=== PATIENT | male | born 1955 | race Caucasian/White ===

== ENCOUNTER 2018-03-31 13:09 | Inpatient (IN) | payer BC ==
[2018-03-31] VITALS (18 sets, daily range): BP systolic 98–135; BP diastolic 58–83; BMI 25.8
[~2018-03-31] VITALS: Ht 167.6 cm; Wt 72.0 kg
--- NOTE | ~2018-03-31 | HEMODYNAMI ---
PATIENT:GISELL BAEZA MEDICAL RECORD: [id number] : 59 [address] [id number] ADMISSION DATE: 03/31/18 Generatedon:04/02/201812:35 Patient name: GISELL BAEZA Patient #: [id number] SSN: : Date of study: 04/02/2018 Page: Of Hemodynamic Procedure Report Patient Data Patient Demographics Procedure consent was obtained First Name: GISELL Gender: Male Last Name: FELISHA : 1955 Patient #: [id number] Age: 62 year(s) Race: Unknown Additional ID: [id number] Contact details Address: UNKNOWN State: [place] City: [facility] Zip code: [address] Past Medical History Allergies: No known allergies Admission Admission Data Admission Date: 03/31/2018 Admission Time: 14:22 Admit Source: Emergency department Room #: D.CV02 Lab Results Lab Result Date: 04/02/2018 Lab Result Time: 0:00 Biochemistry Name Units Result Min Max BUN mg/dl 11 --(-*--)-- 7 18 Creatinine mg/dl 0.8 --(-*--)-- 0.6 1.3 CBC Name Units Result Min Max Hematocrit % 42.2 --(*---)-- 42 54 Hemoglobin g/dl 14.3 --(*---)-- 13.5 17.5 Procedure Procedure Types Cath Procedure Diagnostic Procedure [facility] PCI Procedure Coronary Stent Coronary Stent Initial x2 Procedure Description Procedure Date Procedure Date: 04/02/2018 Procedure Start Time: 12:18 Procedure End Time: 12:34 Procedure Staff Name Function Rakesh Lawton MD Performing Physician Ezekiel Escalera RT Monitor Ledy Pearson RT Scrub Ortega Boogie RN Nurse Procedure Data Cath Procedure Fluoroscopy Diagnostic fluoroscopy Total fluoroscopy Time: 2.6 time: 2.6 min min Diagnostic fluoroscopy Total fluoroscopy dose: dose: 157.54 mGy 157.54 mGy Contrast Material Contrast Material Type Amount (ml) Isovue 300 64 Entry Location Entry Primary Successful Side Size Upsize Upsize Entry Closure Willis ccessful Closure Location (Fr) 1 (Fr) 2 (Fr) Remarks Device Remarks Radial Right 6 Fr Mechanical artery Short Compression Estimated blood loss: 10 ml Procedure Complications No complications Procedure Medications Medication Administration Route Dosage 0.9% NaCl I.V. 100 ml/hr Oxygen etCO2 Nasal cannula 4 l/min Heparin Flush Bag added to field 2 bags (1000units/500ml NS) Lidocaine 2% added to field 20 Radial Cocktail added to field 1 syringe (Verapomil 2mg/Nitro 400mcg/Heparin 1500units) Versed I.V. 1 mg Fentanyl I.V. 50 mcg Radial Cocktail I.A. 1 syringe (Verapomil 2mg/Nitro 400mcg/Heparin 1500units) Oxygen etCO2 Nasal cannula 6 l/min Heparin Bolus I.V. 4000 units Hemodynamics Rest HGB: 14.3 (g/dl) Heart Rate: 75 (bpm) Snapshots Pre Cath Intra NCS Post Cath Vital Signs Time Heart Resp SPO2 etCO2 NIBP (mmHg) Rhythm Pain Sedation Rate (ipm) (%) (mmHg) Status Level (bpm) 12:00:38 71 22 92 0 114/82(103) NSR 0 (11) 10(A) , No pain 12:04:46 73 19 92 36.4 111/81(92) NSR 0 (11) 10(A) , No pain 12:08:56 74 19 90 37.9 99/70(84) NSR 0 (11) 10(A) , No pain 12:13:02 74 20 90 34.1 107/68(85) NSR 0 (11) 10(A) , No pain 12:17:11 73 17 92 25.8 100/70(86) NSR 0 (11) 9(A) , No pain 12:21:21 72 19 94 28.8 101/61(79) NSR 0 (11) 9(A) , No pain 12:25:27 77 18 90 32.6 101/70(86) NSR 0 (11) 9(A) , No pain 12:29:31 74 24 92 32.6 109/75(89) NSR 0 (11) 9(A) , No pain 12:33:37 71 26 94 31.8 107/75(90) NSR 0 (11) 9(A) , No pain Medications Time Medication Route Dose Verified Delivered Reason Not es Effectiveness by by 12:03:20 0.9% NaCl I.V. 100 Ortega Ortega Per physician ml/hr Keagan Boogie RN RN 12:03:37 Oxygen etCO2 4 l/min Ortega Ortega for low 02 sats Nasal Lorigan Lorigan cannula RN RN 12:03:47 Heparin Flush added 2 bags Ortega Ortega used for Bag to Lorigan Keagan procedure (1000units/500ml field RN RN NS) 12:03:58 Lidocaine 2% added 20ml Ortega Ortega for local to vial Lorigan Lorigan anesthetic field RN RN 12:04:10 Radial Cocktail added 1 Ortega Ortega used for (Verapomil to syringe Lorigan Lorigan procedure 2mg/Nitro field RN RN 400mcg/Heparin 1500units) 12:16:13 Versed I.V. 1 mg Ortega Ortega for sedation Keagan Boogie RN RN 12:16:21 Fentanyl I.V. 50 mcg Ortega Ortega for sedation Keagan Boogie RN RN 12:18:21 Radial Cocktail I.A. 1 Ortega Rakesh for (Verapomil syringe Lorigan Tauth MD vasodilation 2mg/Nitro RN 400mcg/Heparin 1500units) 12:19:24 Oxygen etCO2 6 l/min Ortega Ortega for low 02 sats Nasal Lorigan Lorigan cannula RN RN 12:20:58 Heparin Bolus I.V. 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 Start room use. 11:43:01 Time tracking: Regular hours (M-F 7:00 - 5:00) 11:43:04 Plan of Care:Hemodynamics will remain stable., Cardiac rhythm will remain stable., Comfort level will be maintained., Respiratory function will remain adequate., Patient/ family verbilizes understanding of procedure., Procedure tolerated without complication., Recovers from procedure without complications.. 11:45:01 Lab Result : BUN 11 mg/dl 11:45:01 Lab Result : Creatinine 0.8 mg/dl 11:45:01 Lab Result : Hemoglobin 14.3 g/dl 11:45:01 Lab Result : Hematocrit 42.2 % 11:45:03 Lab results completed and on chart. 11:45:10 H&P Date Dictated: 03/31/2018 Within 30 days and on chart.. 11:45:19 Patient allergic to No known allergies 11:50:58 Patient received from CVICU to CCL 3 Alert and oriented. Tansferred to table in Supine position. 11:50:59 Warm blankets applied, and derrick hugger turned on for patient comfort. 11:50:59 Correct patient and procedure confirmed by team. 11:51:00 ECG and BP/O2 sat monitors applied to patient. 11:51:01 Pre-procedure instructions explained to patient. 11:51:02 Pre-op teaching completed and patient verbalized understanding. 11:51:04 Family in waiting room. 11:51:05 Patient NPO since Midnight. 11:51:06 Is the patient allergic to Iodine/contrast media? No. 11:51:07 Is patient on blood thinner?Yes 11:51:10 ACC The patient was administered the following blood thiners within the last 24 hours: ACCPlavix 11:51:12 Patient diabetic? No. 11:59:39 Vital chart was started 12:03:20 0.9% NaCl 100 ml/hr I.V. was administered by Ortega Boogie RN; Per physician; 12:03:37 Oxygen 4 l/min etCO2 Nasal cannula was administered by Ortega Boogie RN; for low 02 sats; 12:03:47 Heparin Flush Bag (1000units/500ml NS) 2 bags added to field was administered by Ortega Boogie RN; used for procedure; 12:03:58 Lidocaine 2% 20ml vial added to field was administered by Ortega Boogie RN; for local anesthetic; 12:04:10 Radial Cocktail (Verapomil 2mg/Nitro 400mcg/Heparin 1500units) 1 syringe added to field was administered by Ortega Boogie RN; used for procedure; 12:08:55 Baseline sample Acquired. 12:10:20 Full Disclosure recording started 12:12:04 Previous problem with sedation/anesthesia? No ? 12:12:05 Snore? Yes 12:12:06 Sleep apnea? Yes 12:12:07 Deviated septum? No 12:12:08 Opens mouth fully? Yes 12:12:09 Sticks out tongue? Yes 12:12:32 Airway obstruction? No ? 12:12:35 Dentures? No ? 12:12:37 Pre procedure: right dorsailis pedis pulse 2+ Normal; easily identifiable; not easily obliterated 12:12:39 Pre procedure: left dorsailis pedis pulse 2+ Normal; easily identifiable; not easily obliterated 12:12:42 Modified Deniz's test Ulnar < 7 seconds 12:12:43 Patient pain scale 0/10 ?. 12:12:49 IV patent on arrival in left hand, left antecubital with 0.9% NaCl at [facility]. 12:12:53 Right Radial & Right Groin area was prepped with chlora-prep and draped in sterile fashion 12:12:54 Alarms reviewed by R. N. 12:12:54 Sharps counted by scrub and verified by R.N. 12:12:57 Use device set Radial Dx or PCI 12:12:58 Medline Cath Pack ([id number]) opened to sterile field. 12:12:58 ACIST Syringe (42877) opened to sterile field. 12:12:59 Bag Decanter (2002S) opened to sterile field. 12:12:59 ACIST Hand Control (85113) opened to sterile field. 12:13:00 ACIST Manifold (13590) opened to sterile field. 12:13:00 Tegaderm 4 x 4 (1626W) opened to sterile field. 12:13:01 MBrace Wrist Support ([id number]) opened to sterile field. 12:13:01 DIAGNOSTIC WIRE .035 260cm J wire (859980) opened to sterile field. 12:13:02 SHEATH 6FR Slender (65-6677) opened to sterile field. 12:13:14 Baseline sample Acquired. 12:13:17 Rhythm: sinus rhythm 12:13:40 Physician paged 12:14:55 Physician arrived 12:14:58 --------ALL STOP TIME OUT------ 12:14:58 Final Timeout: patient, procedure, and site verified with staff and physician. All members of the team are in agreement. 12:15:03 Right Radial & Right Groin site verified by team. 12:15:08 Fire Safety Assessment: A--An alcohol-based skin anteseptic being used preoperatively., C--Open oxygen or nitrous oxide is being used., D--An ESU, laser, or fiber-optic light is being used. 12:15:10 Physical assessment completed. ASA score P 2 - A patient with mild systemic disease as per Rakesh Lawton MD. 12:15:12 Sedation plan: IV Moderate Sedation Medication:Versed, Fentanyl 12:16:08 INFLATOR Merit BasixCompak (AI2333) opened to sterile field. 12:16:08 GUIDE 6FR XBLAD 3.5 catheter ([id number]) opened to sterile field. 12:16:13 Versed 1 mg I.V. was administered by Ortega Boogie RN; for sedation; 12:16:21 Fentanyl 50 mcg I.V. was administered by Ortega Boogie RN; for sedation; 12:18:09 Zero performed for pressure channel P1 12:18:15 Zero performed for pressure channel P1 12:18:21 Radial Cocktail (Verapomil 2mg/Nitro 400mcg/Heparin 1500units) 1 syringe I.A. was administered by Rakesh Lawton MD; for vasodilation; 12:18:35 Procedure started. 12:18:38 Local anesthetic to right radial artery with Lidocaine 2% by Rakesh Lawton MD.INITIAL ACCESS ONLY 12:18:47 A 6 Fr Short sheath was inserted into the Right Radial artery 12:19:00 6 Fr xblad 3.5 guide catheter was inserted over the wire 12:19:24 Oxygen 6 l/min etCO2 Nasal cannula was administered by Ortega Boogie RN; for low 02 sats; 12:20:16 CHOICE PT Extra Support J 300cm guide wire ([id number]) opened to sterile field. 12:20:23 choice pt es wire advanced. 12:20:58 Heparin Bolus 4000 units I.V. was administered by Ortega Boogie RN; for anticoagulation; 12:21:05 Wire advanced across lesion. 12:22:45 Place stent Inflation Number: 1 A INTEGRITY OTW 2.5 X 22 stent ([id number]) was prepped and advanced across the Prox LAD. The stent was deployed at 13 ANNALEE for 0:10 (min:sec). 12:22:51 Inflation number: 2 The stent balloon was then re-inflated across the Prox LAD to 17 ANNALEE for 0:10 (min:sec). 12:23:13 Stent catheter was removed intact over wire. 12:23:16 Wire removed. 12:23:17 Guide catheter removed. 12:23:25 GUIDE 6FR AR 2.0 catheter ([id number]) opened to sterile field. 12:24:27 6 Fr ar 2 guide catheter was inserted over the wire 12:24:33 choice pt es wire advanced. 12:26:56 Place stent Inflation Number: 1 A INTEGRITY OTW 3.5 X 26 stent ([id number]) was prepped and advanced across the Prox RCA. The stent was deployed at 13 ANNALEE for 0:10 (min:sec). 12:27:11 Stent catheter was removed intact over wire. 12:27:12 Wire removed. 12:27:13 Guide catheter removed. 12:27:55 TR BAND Standard ([id number]) opened to sterile field. 12::33 Sheath removed intact; hemostasis achieved with Mechanical Compression to the Right Radial artery. 12:29:35 Procedure ended.(Physican Out) 12:31:07 Fluoroscopy time 02.60 minutes. 12:31:14 Flurop Dose total: 157.54 12:31:14 Fluoroscopy dose: 157.54 mGy 12::29 Contrast amount:Isovue 300 64ml. 12:31:31 Sharps counted by scrub and verified by R.N. 12:32:21 TR band inflated with 12cc of air. 12:32:23 Insertion/operative site no bleeding no hematoma. 12:32:28 Post right radial artery:stable, soft, clean and dry 12:32:29 Post Procedure Pulses reassessed and unchanged 12:32:31 Post-procedure physical assessment completed. ASA score P 2 - A patient with mild systemic disease as per Rakesh Lawton MD. 12:32:35 Post procedure rhythm: unchanged. 12:32:37 Estimated blood loss: 10 ml 12:32:39 Post procedure instruction explained to patient.Patient verbalizes understanding. 12:32:40 Patient needs reinforcement of post procedure teaching. 12:33:01 Procedure type changed to Cath procedure, Diagnostic procedure, LHC, PCI procedure, Coronary Stent, Coronary Stent Initial x2 12:33:57 Procedure and supply charges have been captured, reviewed, submitted and are correct. 12:33:59 Procedure Complication : No complications 12:34:01 Vital chart was stopped 12:34:01 See physician's report for complete and final results. 12:34:04 Report given to CVICU. 12:34:07 Patient transfered to CVICU with Stretcher. 12:34:09 Procedure ended. 12:34:09 Full Disclosure recording stopped 12:34:12 End room use (Document Last) Intervention Summary Intervention Notes Time ActionType Lesion and Equipment Action# Pressure Duration Attributes Used 12:22:45 Place stent Prox LAD INTEGRITY 1 13 00:10 OTW 2.5 X 22 stent ([id number]) 12:22:51 Reinflate Prox LAD INTEGRITY 2 17 00:10 stent OTW 2.5 X balloon 22 stent ([id number]) 12:26:56 Place stent Prox RCA INTEGRITY 1 13 00:10 OTW 3.5 X 26 stent ([id number]) Device Usage Item Name Manufacture Quantity Catalog Number Hospital Part Current Minim al Lot# / Charge Number Stock Stock Serial# Code Medline Medline 1 [id number] 057819 70935 604740 5 Cath Pack ([id number]) ACIST Acist 1 76002 836542 072743 353456 20 Syringe Medical (31540) Systems Inc Bag Microtek 1 2001S 525915 54640 592483 5 Decanter Medical Inc. () ACIST Hand Acist 1 93871 759183 931782 534765 5 Control Medical (67740) Systems Inc ACIST Acist 1 49337 380980 485108 584091 5 Manifold Medical (29095) Systems Inc Tegaderm 4 3M 1 1626W 112122 992709 671017 5 x 4 (1626W) MBrace Advanced 1 140-0250-00 144464 34643 161534 5 Wrist Vascular Support Dynamics ([id number]) DIAGNOSTIC [facility] [place] 1 423298 895202 675685 431124 30 WIRE .035 260cm J wire (233233) SHEATH 6FR Terumo 1 [id number] 837087 206472 941959 5 Slender (80-1060) INFLATOR [facility] 1 [id number] 063673 533925 370794 [address] [facility] BasixCompak (EM9940) GUIDE 6FR Cardinal 1 [id number] 005388 111788 986087 10 XBLAD 3.5 Health catheter (64197511) CHOICE PT [place] 1 [id number] 499118 20180807 568479 5 Extra Scientific Support J 300cm guide wire ([id number]) INTEGRITY Medtronic 1 [id number] 462587 901832 850461 4 [id number] OTW 2.5 X 22 stent ([id number]) GUIDE 6FR Medtronic 1 [id number] 191033 98103 578498 1 AR 2.0 catheter (WR1FZ73) INTEGRITY Medtronic 1 [id number] 025654 353166 848377 1 [id number] OTW 3.5 X 26 stent ([id number]) TR BAND Terumo 1 [id number] 217258 191524 585349 40 Standard ([id number]) Signature Audit [place] Stage Time Signature Unsigned Intra-Procedure 04/02/2018 Ezekiel Escalera 12:35:08 PM RT(R) Signatures Monitor : Ezekiel Escalera RT Signature : Date : Time : [place] [address] [place] [address]
--- NOTE | ~2018-03-31 | HEMODYNAMI ---
PATIENT:GISELL BAEZA MEDICAL RECORD: [id number] : 59 [id number] ADMISSION DATE: 03/31/18 Generatedon:03/31/201814:17 Patient name: GISELL BAEZA Patient #: [id number] SSN: : Date of study: 03/31/2018 Page: Of Hemodynamic Procedure Report Patient Data Patient Demographics Procedure consent was obtained First Name: GISELL Gender: Male Last Name: FELISHA : 1955 Patient #: [id number] Age: 62 year(s) Race: Unknown Additional ID: [id number] Contact details Address: UNKNOWN State: [place] City: [facility] Zip code: [address] Past Medical History Allergies: No known allergies Admission Admission Data Admission Date: 03/31/2018 Admission Time: 13:09 Procedure Procedure Types Cath Procedure Diagnostic Procedure LHC LHC w/Coronaries Sedation Charges Moderate Sedation up to 15 minutes PCI Procedure AMI/SVG/COMMERCIAL ESCROW ASSISTANT PTCA or Stent AMI-BMS/KALA Initial Procedure Description Procedure Date Procedure Date: 03/31/2018 Procedure Start Time: 13:45 Procedure End Time: 14:17 Procedure Staff Name Function Rakesh Lawton MD Performing Physician Ezekiel Escalera RT Monitor Ortega Boogie RN Nurse Ledy Pearson RT Scrub Procedure Data Cath Procedure Fluoroscopy Diagnostic fluoroscopy Total fluoroscopy Time: 8.8 time: 8.8 min min Diagnostic fluoroscopy Total fluoroscopy dose: dose: 1126 mGy 1126 mGy Contrast Material Contrast Material Type Amount (ml) Isovue 300 147 Entry Location Entry Primary Successful Side Size Upsize Upsize Entry Closure Succes sful Closure Location (Fr) 1 (Fr) 2 (Fr) Remarks Device Remarks Femoral Right 6 Fr Exoseal artery Short Estimated blood loss: 10 ml Diagnostic catheters Device Type Used For End Catheter Placement MULTIPACK Pigtail 5 Fr LV Angiography catheter MULTIPACK JL 4.0 5Fr Left Coronary catheter Angiography MULTIPACK 3DRC 5Fr Right Coronary catheter Angiography Procedure Complications No complications Procedure Medications Medication Administration Route Dosage 0.9% NaCl I.V. 100 ml/hr Oxygen etCO2 Nasal cannula 2 l/min Heparin Flush Bag added to field 2 bags (1000units/500ml NS) Lidocaine 2% added to field 20 Versed I.V. 1 mg Fentanyl I.V. 50 mcg Heparin Bolus I.V. 4000 units Integrilin (Bolus I.V. 6.8 ml 2mg/ml) Integrilin (Bolus wasted 3.2 ml 2mg/ml) Integrilin Drip I.V. drip 11.7 ml/hr (75mg/100ml) Fentanyl I.V. 50 mcg Integrilin (Bolus I.C. 6.8 ml 2mg/ml) Integrilin (Bolus wasted 3.2 ml 2mg/ml) Versed I.V. 1 mg Lopressor I.V. 5 mg Zofran I.V. 4 mg Hemodynamics Rest Heart Rate: 73 (bpm) Snapshots Pre Cath Intra NCS Post Cath Vital Signs Time Heart Resp SPO2 etCO2 NIBP (mmHg) Rhythm Pain Sedation Rate (ipm) (%) (mmHg) Status Level (bpm) 13:35:05 87 15 94 0 150/91(125) NSR 8 (11) , 10(A) Utterly horrible 13:39:23 81 20 92 28.9 150/88(118) NSR 8 (11) , 10(A) Utterly horrible 13:43:39 79 16 92 28.1 142/90(124) NSR 8 (11) , 10(A) Utterly horrible 13:47:55 80 11 93 30.4 136/87(115) NSR 8 (11) , 10(A) Utterly horrible 13:52:11 83 13 92 32.6 138/82(111) NSR 8 (11) , 10(A) Utterly horrible 13:56:27 89 18 97 28.1 142/89(119) NSR 8 (11) , 10(A) Utterly horrible 14:00:43 77 10 98 28.9 141/80(111) NSR 8 (11) , 10(A) Utterly horrible 14:04:59 70 15 95 31.1 125/75(103) NSR 8 (11) , 10(A) Utterly horrible 14:09:11 65 14 97 30.3 129/85(107) NSR 8 (11) , 10(A) Utterly horrible 14:13:25 63 18 97 30.4 139/82(105) NSR 8 (11) , 10(A) Utterly horrible 14:17:35 69 26 88 30.4 120/78(107) NSR 8 (11) , 10(A) Utterly horrible Medications Time Medication Route Dose Verified Delivered Reason Notes Effectiveness by by 13:38:24 0.9% NaCl I.V. 100 Ortega Ortega Per physician ml/hr Keagan Boogie RN RN 13:38:36 Oxygen etCO2 2 Ortega Ortega for low 02 sats Nasal l/min Keagan Boogie cannula RN RN 13:39:04 Heparin Flush added 2 Ortega Ortega used for Bag to bags Keagan Boogie procedure (1000units/500ml RN RN NS) 13:39:15 Lidocaine 2% added 20ml Ortega Ortega for local to vial Keagan Boogie anesthetic field RN RN 13:43:52 Versed I.V. 1 mg Ortega Ortega for sedation Keagan Boogie RN RN 13:44:03 Fentanyl I.V. 50 Ortega Ortega for sedation mcg Keagan Boogie RN RN 13:45:41 Heparin Bolus I.V. 4000 Ortega Ortega for units Keagan Boogie anticoagulation RN RN 13:45:58 Integrilin I.V. 6.8 Ortega Ortega for (Bolus 2mg/ml) ml Keagan Boogie antiplatelet RN RN therapy 13:46:10 Integrilin wasted 3.2 Ortega Ortega to sharp's (Bolus 2mg/ml) ml Keagan Boogie RN RN 13:51:37 Integrilin Drip I.V. 11.7 Ortega Ortega for (75mg/100ml) drip ml/hr Keagan Boogie antiplatelet RN RN therapy 13:55:34 Fentanyl I.V. 50 Ortega Ortega for sedation mcg Keagan Boogie RN RN 13:56:02 Integrilin I.C. 6.8 Ortega Rakesh for (Bolus 2mg/ml) ml Keagan Lawton MD antiplatelet RN therapy 13:57:07 Integrilin wasted 3.2 Ortega Rakesh to sharp's (Bolus 2mg/ml) ml Keagan Lawton MD RN 13:58:02 Versed I.V. 1 mg Ortega Ortega for sedation Lindseyigan Keagan RN RN 14:01:32 Lopressor I.V. 5 mg Ortega Ortega for Lorigan Keagan hypertension RN RN 14:04:17 Zofran I.V. 4 mg Ortega Ortega for nausea Keagan Boogie RN framing manager Log Time Note 13:24:55 Ortega Boogie RN sent for patient. Start room use. 13:24:57 Time tracking: Call back (After hours or weekends) 13:25:00 Plan of Care:Hemodynamics will remain stable., Cardiac rhythm will remain stable., Comfort level will be maintained., Respiratory function will remain adequate., Patient/ family verbilizes understanding of procedure., Procedure tolerated without complication., Recovers from procedure without complications.. 13:26:14 Patient received from ED to CCL 1 Alert and oriented. Tansferred to table in Supine position. 13:26:14 Warm blankets applied, and derrick hugger turned on for patient comfort. 13:26:16 Correct patient and procedure confirmed by team. 13:26:17 Signed procedure consent form obtained from patient. 13:26:18 ECG and BP/O2 sat monitors applied to patient. 13:26:19 Full Disclosure recording started 13:33:57 Vital chart was started 13:34:00 Rhythm: sinus rhythm , w/ ST elevation 13:34:05 H&P Date Dictated: 03/31/2018 Emergent; H&P N/A. 13:34:06 Pre-procedure instructions explained to patient. 13:34:07 Pre-op teaching completed and patient verbalized understanding. 13:34:09 Family in waiting room. 13:34:10 Patient NPO since Midnight. 13:34:27 Patient allergic to No known allergies 13:34:29 Is the patient allergic to Iodine/contrast media? No. 13:34:42 Is patient on blood thinner?Yes 13:34:44 ACC The patient was administered the following blood thiners within the last 24 hours: ACCPlavix 13:34:46 Patient diabetic? No. 13:34:50 Previous problem with sedation/anesthesia? No ? 13:34:55 Snore? Yes 13:35:08 Sleep apnea? Yes 13:35:09 Deviated septum? No 13:35:10 Opens mouth fully? Yes 13:35:11 Sticks out tongue? Yes 13:35:14 Airway obstruction? No ? 13:35:15 Dentures? No ? 13:35:17 Pre procedure: right dorsailis pedis pulse 2+ Normal; easily identifiable; not easily obliterated 13:35:20 Patient pain scale 0/10 ?. 13:35:29 IV patent on arrival in left forearm with 0.9% NaCl at [facility]. 13:35:31 Lab results completed and on chart. 13:35:33 Right groin area was prepped with chlora-prep and draped in sterile fashion 13:35:34 Alarms reviewed by R. N. 13:35:34 Sharps counted by scrub and verified by R.N. 13:35:38 Use device set Femoral Dx 13:35:39 ACIST Syringe (92180) opened to sterile field. 13:35:39 Bag Decanter (2002S) opened to sterile field. 13:35:40 Medline Cath Pack ([id number]) opened to sterile field. 13:35:40 DIAGNOSTIC WIRE .035 260cm J wire (266118) opened to sterile field. 13:35:41 ACIST Hand Control (20518) opened to sterile field. 13:35:42 ACIST Manifold (53570) opened to sterile field. 13:35:43 DIAGNOSTIC Multipack 5Fr catheter set (WO8014) opened to sterile field. 13:35:43 Tegaderm 4 x 4 (1626W) opened to sterile field. 13:35:50 Use device set TAUTH PCI 13:35:51 SHEATH 6FR Beaufort (PVS619) opened to sterile field. 13:35:54 CHOICE PT Extra Support 182cm wire ([id number]) opened to sterile field. 13:35:57 INFLATOR Merit BasixCompak (RD7871) opened to sterile field. 13:38:24 0.9% NaCl 100 ml/hr I.V. was administered by Ortega Boogie RN; Per physician; 13:38:36 Oxygen 2 l/min etCO2 Nasal cannula was administered by Ortega Boogie RN; for low 02 sats; 13:39:04 Heparin Flush Bag (1000units/500ml NS) 2 bags added to field was administered by Ortega Boogie RN; used for procedure; 13:39:15 Lidocaine 2% 20ml vial added to field was administered by Ortega Boogie RN; for local anesthetic; 13::42 Zero performed for pressure channel P1 13:41:57 Baseline sample Acquired. 13:42:00 Physician paged 13:43:23 Final Timeout: patient, procedure, and site verified with staff and physician. All members of the team are in agreement. 13:43:25 Right groin site verified by team. 13:43:28 Fire Safety Assessment: A--An alcohol-based skin anteseptic being used preoperatively., C--Open oxygen or nitrous oxide is being used., D--An ESU, laser, or fiber-optic light is being used. 13:43:31 Physical assessment completed. ASA score P 3 - A patient with severe systemic disease as per Rakesh Lawton MD. 13:43:34 Sedation plan: IV Moderate Sedation Medication:Versed, Fentanyl 13:43:52 Versed 1 mg I.V. was administered by Ortega Boogie RN; for sedation; 13:44:03 Fentanyl 50 mcg I.V. was administered by Ortega Boogie RN; for sedation; 13:45:08 Procedure started. 13:45:12 Local anesthetic to right femoral artery with Lidocaine 2% by Rakesh Lawton MD.INITIAL ACCESS ONLY 13:45:31 A 6 Fr Short sheath was inserted into the Right Femoral artery 13:45:41 Heparin Bolus 4000 units I.V. was administered by Ortega Boogie RN; for anticoagulation; 13:45:54 A MULTIPACK Pigtail 5 Fr catheter was advanced over the wire and used for LV Angiography. 13:45:58 Integrilin (Bolus 2mg/ml) 6.8 ml I.V. was administered by Ortega Boogie RN; for antiplatelet therapy; 13:46:10 Integrilin (Bolus 2mg/ml) 3.2 ml wasted was administered by Ortega Boogie RN; to sharp's; 13:46:19 LV gram done using JENNINGS 13:46:29 EF : 50 % 13:46:32 Injector settings: Ml/sec: 10, Volume: 20, 13:46:33 Catheter removed. 13:46:41 A MULTIPACK JL 4.0 5Fr catheter was advanced over the wire and used for Left Coronary Angiography. 13:47:27 Catheter removed. 13:47:40 A MULTIPACK 3DRC 5Fr catheter was advanced over the wire and used for Right Coronary Angiography. 13:48:22 Catheter removed. 13:48:43 6 Fr XBLAD 4.0 guide catheter was inserted over the wire 13:49:56 GUIDE 6FR XBLAD 4.0 catheter ([id number]) opened to sterile field. 13:50:03 CHOICE PT ES wire advanced. 13:51:37 Integrilin Drip (75mg/100ml) 11.7 ml/hr I.V. drip was administered by Ortega Boogie RN; for antiplatelet therapy; 13:52:29 Inflate balloon Inflation number: 1 A EUPHORA 2.5 x 15 Balloon ([id number]) was prepped and advanced across the Mid CX, then inflated to 13 ANNALEE for 0:04 (min:sec). 13:52:35 Inflation number: 2 The EUPHORA 2.5 x 15 Balloon ([id number]) was reinflated across the Mid CX, to 13 ANNALEE for 0:03 (min:sec). 13:53:19 Balloon removed over the wire. 13:54:59 Place stent Inflation Number: 3 A INTEGRITY RX 3.5 x 22 stent ([id number]) was prepped and advanced across the Mid CX. The stent was deployed at 9 ANNALEE for 0:10 (min:sec). 13:55:34 Fentanyl 50 mcg I.V. was administered by Ortega Boogie RN; for sedation; 13:56:02 Integrilin (Bolus 2mg/ml) 6.8 ml I.C. was administered by Rakesh Lawton MD; for antiplatelet therapy; 13:56:10 Stent catheter was removed intact over wire. 13:57:07 Integrilin (Bolus 2mg/ml) 3.2 ml wasted was administered by Rakesh Lawton MD; to sharp's; 13:57:38 Inflate balloon Inflation number: 4 A EUPHORA 2.0 x 20 Balloon ([id number]) was prepped and advanced across the Mid CX, then inflated to 7 ANNALEE for 0:05 (min:sec). 13:57:51 Inflation number: 5 The EUPHORA 2.0 x 20 Balloon ([id number]) was reinflated across the Mid CX, to 11 ANNALEE for 0:07 (min:sec). 13:58:02 Versed 1 mg I.V. was administered by Ortega Boogie RN; for sedation; 13:59:03 Balloon removed over the wire. 14:01:02 Place stent Inflation Number: 1 A INTEGRITY RX 2.25 x 18 stent ([id number]) was prepped and advanced across the Dist CX. The stent was deployed at 11 ANNALEE for 0:05 (min:sec). 14:01:32 Lopressor 5 mg I.V. was administered by Ortega Boogie RN; for hypertension; 14:01:49 Stent catheter was removed intact over wire. 14:03:29 Inflation number: 6 The stent balloon was then re-inflated across the Mid CX to 11 ANNALEE for 0:00 (min:sec). 14:04:17 Zofran 4 mg I.V. was administered by Ortega Boogie RN; for nausea; 14:05:26 Wire removed. 14:05:40 Guide catheter removed. 14:05:56 Sheath removed intact; hemostasis achieved with Exoseal to the Right Femoral artery. 14:05:59 Procedure ended.(Physican Out) 14:07:03 Fluoroscopy time 08.80 minutes. 14:07:07 Flurop Dose total: 1126 14:07:07 Fluoroscopy dose: 1126 mGy 14:07:10 Contrast amount:Isovue 300 147ml. 14:07:12 Sharps counted by scrub and verified by R.N. 14:07:27 Insertion/operative site no bleeding no hematoma. 14:07:29 Post-op/insertion site Right Femoral artery dressed using a 4 x 4 and Tegaderm. 14:07:32 Post right femoral artery:stable, clean and dry 14:07:34 Post Procedure Pulses reassessed and unchanged 14:07:38 Post-procedure physical assessment completed. ASA score P 2 - A patient with mild systemic disease as per Rakesh Lawton MD. 14:07:40 Post procedure rhythm: unchanged. 14:07:44 Estimated blood loss: 10 ml 14:07:45 Post procedure instruction explained to patient.Patient verbalizes understanding. 14:07:46 Patient needs reinforcement of post procedure teaching. 14:09:10 Procedure type changed to Cath procedure, Diagnostic procedure, LHC, LHC w/Coronaries, Sedation Charges, Moderate Sedation up to 15 minutes, PCI procedure, AMI/SVG/COMMERCIAL ESCROW ASSISTANT PTCA or Stent, AMI-BMS/KALA Initial 14:09:17 Procedure Complication : No complications 14:09:19 See physician's report for complete and final results. 14:10:03 EXOSEAL 6Fr (EX600) opened to sterile field. 14:10:41 Procedure and supply charges have been captured, reviewed, submitted and are correct. 14:17:08 Vital chart was stopped 14:17:11 Report given to CVICU. 14:17:14 Patient transfered to CVICU with Bed. 14:17:31 Procedure ended. 14:17:31 Full Disclosure recording stopped 14:17:34 End room use (Document Last) Intervention Summary Intervention Notes Time ActionType Lesion and Equipment Action# Pressure Duration Attributes Used 13:52:29 Inflate Mid CX EUPHORA 2.5 1 13 00:05 balloon x 15 Balloon ([id number]) 13:52:35 Reinflate Mid CX EUPHORA 2.5 2 13 00:03 balloon x 15 Balloon ([id number]) 13:54:59 Place stent Mid CX INTEGRITY RX 3 9 00:10 3.5 x 22 stent ([id number]) 13:57:38 Inflate Mid CX EUPHORA 2.0 4 7 00:05 balloon x 20 Balloon ([id number]) 13:57:51 Reinflate Mid CX EUPHORA 2.0 5 11 00:07 balloon x 20 Balloon ([id number]) 14:01:02 Place stent Dist CX INTEGRITY RX 1 11 00:05 2.25 x 18 stent ([id number]) 14:03:29 Reinflate Mid CX INTEGRITY RX 6 11 00:00 stent 3.5 x 22 balloon stent ([id number]) Device Usage Item Name Manufacture Quantity Catalog Number Hospital Part Current Mini mal Lot# / Charge Number Stock Stock Serial# Code [employer] 1 19510 773980 718147 671290 20 Syringe [employer] (58950) Systems Inc Bag Decanter Microtek 1 269018 53162 803293 5 () Medical Inc. Medline Cath Medline 1 [id number] 674708 28871 013475 5 Pack ([id number]) DIAGNOSTIC St Timur 1 007900 237879 729927 606047 30 WIRE .035 260cm J wire (334519) ACIST Hand Acist 1 76599 517640 859573 441720 5 Control Medical (25717) Systems Inc ACIST Acist 1 56420 696214 200626 350302 5 Manifold Medical (54156) Systems Inc DIAGNOSTIC Cardinal 1 RF2556 075605 68846 839046 30 Multipack Health 5Fr catheter set (KG0095) Tegaderm 4 x 3M 1 1626W 179013 497914 874967 5 4 (1626W) SHEATH 6FR Terumo 1 SDW077 575099 375845 701767 40 Beaufort (TYN292) CHOICE PT [place] 1 [id number] 019321 934019 289610 5 Extra Scientific Support 182cm wire ([id number]) INFLATOR Merit 1 TS5431 287197 797192 583248 15 [place] Heart BasixCompak (QC4326) MULTIPACK Cardinal 1 367801 5 Pigtail 5 Fr Health catheter MULTIPACK JL Cardinal 1 856192 5 4.0 5Fr Health catheter MULTIPACK Cardinal 1 329968 5 3DRC 5Fr Health catheter GUIDE 6FR Cardinal 1 [id number] 615672 432548 559599 3 XBLAD 4.0 Health catheter ([id number]) EUPHORA 2.5 Medtronic 1 [id number] 235704 298641 579244 5 [id number] x 15 Balloon ([id number]) INTEGRITY RX Medtronic 1 [id number] 720698 373079 054320 5 [id number] 3.5 x 22 stent ([id number]) EUPHORA 2.0 Medtronic 1 [id number] 801076 254091 452329 5 [id number] x 20 Balloon ([id number]) INTEGRITY RX Medtronic 1 [id number] 867777 182078 335030 5 [id number] 2.25 x 18 stent ([id number]) EXOSEAL 6Fr Cardinal 1 EX600 327602 067527 237756 10 (EX600) Health Signature Audit [place] Stage Time Signature Unsigned Intra-Procedure 03/31/2018 Ledy 2:17:47 PM Counts RT(R) Signatures Monitor : Ezekiel Escalera RT Signature : Date : Time : [address] [place] [address]
[2018-03-31 13:23] LABS: BASOPHILS 0.1 % (0-2); EOSINOPHILS 0.2 % (0-7); HEMATOCRIT 41.3 % (42.0-54.0); HEMOGLOBIN 14.4 g/dL (13.5-17.5); IMMATURE GRANULOCYTES 0.2 % (0-5); LYMPHOCYTES 4.4 % (15-50); MCH 30.3 pg (26.0-34.0); MCHC 34.9 g/dL (31.0-37.0); MCV 86.9 fL (80.0-100.0); MEAN PLATELET VOLUME 12.7 fL (7.4-10.4); NEUTROPHILS 89.1 % (40-80); PLATELET COUNT 168 10x3/uL (130-400); RBC 4.75 10x6/uL (4.20-6.10); RDW 13.7 % (11.5-14.5); WBC 15.3 10x3/uL (4.8-10.8)
[2018-03-31 13:41] LABS: ALKALINE PHOSPHATASE 75 U/L (46-116); ALT (SGPT) 45 U/L (10-68); CALC OSMOLALITY 283 mosm/kg (275-300); CALCIUM 8.4 mg/dL (8.5-10.1); CARBON DIOXIDE 19.4 mmol/L (21.0-32.0); CHLORIDE - SERUM 103 mmol/L (98-107); CREATININE - SERUM 1.1 mg/dL (0.6-1.3); GLUCOSE 168 mg/dL (74-106); POTASSIUM - SERUM 3.9 mmol/L (3.5-5.1); PROTEIN - SERUM 7.8 g/dL (6.4-8.2); SODIUM 140 mmol/L (136-145); UREA NITROGEN 15 mg/dL (7-18); eGFR NON AFRICAN AMERICAN 72 mL/min (90-120)
[2018-03-31 13:43] LABS: INR 1.06 (0.85-1.17); PROTIME 13.3 SECONDS (11.6-15.0)
[2018-03-31 13:57] LABS: CREATINE KINASE 63 UL (21-232); MAGNESIUM - SERUM 1.4 mg/dL (1.8-2.4)
[2018-03-31 13:59] LABS: TROPONIN-I 0.082 ng/mL (0.000-0.060)
[2018-03-31 14:21] LABS: CKMB 0.8 U/L (0.0-3.6)
--- NOTE | 2018-03-31 17:06 | NUR ---
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-ACCOMPANIED BY DR KWONG-SPOKE TO FAMILY REGARDING RESULTS-AND FINDINGS-R GROIN SOFT TO TOUCH-R PPP 2 BOUNDING--L PERIPHERAL IV INFUSING- INTEGRELLIN AT 11.4ML/H-STATES CONTINUED CHEST PAIN 5/10-MIDSTERNAL TO L ARM-IDENTICAL AREA WITH ORIGINAL CHEST PAIN -PT STATES LESSER INTENSITY-IDENTIFIED THAT LEVEL OF PAIN 9.5/10-NOTED MULTIPLE REPURFUSION LDWLR-RB-VAL- 1545- ALERTED NURSE TO PT STATING-LEVEL INCREASED TO 7-8/10-MORPHINE 4MG IVP GIVEN 1610-PT STATED NO CHANGE IN PAIN LEVEL-NOTED HR INCREASED TO JUNCTIONAL TACH-100-DR KWONG NOTIFIED-CURRENT RHYTHM AND INCREASED RATE-NO RELIEF WITH MSO4-ORDER RECIEVED AND NOTED- 1640-DILAUDID 2MG IVP SLOWLY GIVEN VIA L A/C- 644-WRVHBA-LP STATED 4/10 PAIN LEVEL-NOTED RETURN TO SR-PT STATED FEELS LIGHT HEADED-STRESSED NOT TO GET OUT OF BED-NIBP 114/68 -SAT 95-7L OXIMYZER
--- NOTE | 2018-03-31 20:13 | NUR ---
1899 REPORT RECIEVED, ASSUMED CARE. 1939 SHIFT ASSESSMENT COMPLETE, PLEASE SEE FLOW SHEETS FOR DETAILS. FAMILY AT BEDSIDE, UPDATE GIVEN. PATIENT DENIES NEEDS, STATES PAIN 3/1 IN CHEST AND TOLERABLE. BED LOW AND LOCKED, CALL LIGHT IN REACH, HEMODYNAMICALLY STABLE. WILL CONTINUE TO CLOSELY MONITOR.
--- NOTE | 2018-03-31 21:00 | NUR ---
TOLERATED PO MEDS WELL. DENIES NEEDS. HEMODYNAMICALLY STABLE. BED LOW AND LOCKED, CALL LIGHT IN REACH. WILL CONTINUE TO MONITOR.
--- NOTE | 2018-03-31 23:00 | NUR ---
REASSESSMENT COMPLETE, PLEASE SEE FLOW SHEETS FOR DETAILS. NO ACUTE CHANGES FROM PREVIOUS ASSESSMENT TO NOTE. DENIES NEEDS, PAIN 1.5/10 AND TOLERABLE. BED LOW AND LOCKED, CALL LIGHT IN REACH. HEMODYNAMICALLY STABLE. WILL CONTINUE PLAN OF CARE.
[2018-04-01] VITALS (24 sets, daily range): BP systolic 96–121; BP diastolic 44–76
--- NOTE | 2018-04-01 00:59 | NUR ---
RESTING, HEMODYNAMICALLY STABLE. WILL CPOC.
--- NOTE | 2018-04-01 02:56 | NUR ---
REASSESSMENT COMPLETE, PLEASE SEE FLOW SHEETS FOR DETAILS. NO ACUTE CHANGES, DENIES PAIN/NEEDS. WILL CPOC.
[2018-04-01 07:04] LABS: BASOPHILS 0.1 % (0-2); EOSINOPHILS 0.1 % (0-7); HEMATOCRIT 42.2 % (42.0-54.0); HEMOGLOBIN 14.3 g/dL (13.5-17.5); IMMATURE GRANULOCYTES 0.3 % (0-5); LYMPHOCYTES 4.2 % (15-50); MCH 29.9 pg (26.0-34.0); MCHC 33.9 g/dL (31.0-37.0); MCV 88.1 fL (80.0-100.0); MEAN PLATELET VOLUME 12.9 fL (7.4-10.4); NEUTROPHILS 87.3 % (40-80); PLATELET COUNT 185 10x3/uL (130-400); RBC 4.79 10x6/uL (4.20-6.10); RDW 14.4 % (11.5-14.5)
[2018-04-01 07:34] LABS: ALBUMIN 3.3 g/dL (3.4-5.0); ALKALINE PHOSPHATASE 69 U/L (46-116); ALT (SGPT) 76 U/L (10-68); BILIRUBIN - TOTAL 1.34 mg/dL (0.2-1.3); CALC OSMOLALITY 271 mosm/kg (275-300); CALCIUM 7.9 mg/dL (8.5-10.1); CARBON DIOXIDE 22.7 mmol/L (21.0-32.0); CHLORIDE - SERUM 102 mmol/L (98-107); CREATININE - SERUM 0.8 mg/dL (0.6-1.3); GLUCOSE 117 mg/dL (74-106); POTASSIUM - SERUM 3.9 mmol/L (3.5-5.1); PROTEIN - SERUM 6.8 g/dL (6.4-8.2); SODIUM 136 mmol/L (136-145); UREA NITROGEN 11 mg/dL (7-18); eGFR NON AFRICAN AMERICAN > 90 mL/min (90-120)
--- NOTE | 2018-04-01 10:01 | NUR ---
MINIMALLY REVIEWED MEDICATION AND PURPOSE WITH PT AND FAMILY-ASA AND PLAVIX -NEED AND PURPOSE--BETABLOCKER FOR CURRENT PURPOSE AND DOSE MAY BE ADJUSTED OR STOPPED -DEPENDING IF CARDIAC RESPONSE ADEQUATE
--- NOTE | 2018-04-01 12:15 | NUR ---
1030-DR KWONG AT [facility] AND SPOKE WITH PT AND FAMILY REGARDING STATUS AND PROPOSED PLAN OF CARE 1100-PT C/O ANXIETY-DR KWONG NOTIFIED OF SAME-ORDER RECIEVED AND NOTED- 1110-ATIVAN 1MG PO GIVEN ORDERED 1130-PT STATED VOMITED TABLET-REFUSES ADDITIONAL ANTI ANXIETY MED -
--- NOTE | 2018-04-01 19:31 | NUR ---
REPORT RECEIVED, SHIFT ASSESSMENT COMPLETED PER FLOW SHEET. AAOX4. PPP. LT AC AND LT HAND PIV PATENT, NO SIGNS OF INFECTION OR INFILTRATION. 7 L O2 VIA OXYMIZER. DENIES NEEDS. TEMPERATURE 100.4, BLANKETS REMOVED, FAN TURNED ON, WILL CONTINUE TO MONITOR. CALL LIGHT WITHIN REACH. SEE FLOW SHEET FOR COMPLETE ASSESSMENT.
--- NOTE | 2018-04-01 21:00 | NUR ---
APPLE JUICE PROVIDE PER PATIENT'S REQUEST. AT BEDSIDE, UPDATE GIVEN, QUESTIONS ANSWERED. DENIES OTHER NEEDS. CALL LIGHT WITHIN REACH. WILL CONTINUE TO MONITOR.
--- NOTE | 2018-04-01 23:11 | NUR ---
REASSESSMENT COMPLETED PER FLOW SHEET, SEE FOR DETAILS. DENIES NEEDS. WILL CONTINUE TO MONITOR. CALL LIGHT WITHIN REACH.
[2018-04-02] VITALS (28 sets, daily range): BP systolic 90–115; BP diastolic 46–66; Ht 167.6 cm; Wt 72.0 kg
--- NOTE | 2018-04-02 01:00 | NUR ---
RESTING, NO ACUTE CHANGES NOTED, DENIES NEEDS. WILL CONTINUE TO MONITOR.
--- NOTE | 2018-04-02 03:07 | NUR ---
REASSESSMENT COMPLETED PER FLOW SHEET, SEE FOR DETAILS. DENIES NEEDS. WILL CONTINUE TO MONITOR.
--- NOTE | 2018-04-02 05:00 | NUR ---
RESTING, NO ACUTE CHANGES NOTED. DENIES NEEDS. CALL LIGHT WITHIN REACH. WILL CONTINUE TO MONITOR.
--- NOTE | 2018-04-02 07:15 | NUR ---
SHIFT REPORT RECEIVED. PT AOX4. PT SITTING UP IN BED. BREAKFAST IS CLEAR LIQUID. PT TO BE NPO AFTER BREAKFAST FOR GEOMAGNETICIAN PROCEDURE. PT AWARE. PT HAS RIGHT GROIN PUNCTURE WOUND FROM GEOMAGNETICIAN PROCEDURE 03/31. DRESSING C/D/I. PT IV IN LEFT AC SALINE LOCK. IV TO LEFT HAND SALINE LOCKED. PT IS ON 7L OXIMIZER. O2 SAT 97%. PT IS IN SINUS RHYTHM. NO COMPLAINTS OR NEEDS AT THIS TIME. WILL CONTINUE TO MONITOR.
--- NOTE | 2018-04-02 09:06 | NUR ---
CHANGED O2 TO 5L VIA OXIMIZER. SAT 99%. 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 WILL CONTINUE TO MONITOR.
--- NOTE | 2018-04-02 11:08 | NUR ---
PT RESTING QUIETLY IN BED. O2 WEANED DOWN TO 4L. PT O2 SAT 98%. NO COMPLAINTS OR NEEDS AT THIS TIME. WILL CONTINUE TO MONITOR. CALL LIGHT IN REACH.
--- NOTE | 2018-04-02 11:50 | NUR ---
PT PREOPPED. NORMAL SALINE INFUSING INTO LEFT HAND. BENADRYL AND VALIUM GIVEN. NITRO PASTE APPLIED TO RIGHT WRIST. CERTIFIED ORTHOPTIST AT BEDSIDE TO TAKE PT TO CERTIFIED ORTHOPTIST.
--- NOTE | 2018-04-02 12:40 | NUR ---
REPORT RECEIVED FROM LOSS PREVENTION OFFICER. STENTS PUT IN LAD AND RCA. PT HAS TR BAND TO RIGHT WRIST. O2 AT 6L VIA OXIMIZER. 103/52, MAP 62, PULSE 72, O2 SAT 100%, RESP 20. PT ALERT AND ORIENTED. FAMILY BEDSIDE.
--- NOTE | 2018-04-02 14:51 | NUR ---
PT RESTING QUIETLY WITH NO S/S OF DISTRESS. WEARING OXIMIZER AT 5L AND O2 SAT AT 100%. TR BAND IN PLACE ON RIGHT WRIST. NS INFUSING AT 100ML/HR INTO LEFT HAND IV. WILL CONTINUE TO MONITOR.
--- NOTE | 2018-04-02 15:36 | NUR ---
O2 AT 2L. O2 SAT 99%. 5ML OF AIR REMOVED FROM TR BAND. NO BLEEDING AT SITE. WILL CONTINUE TO MONITOR.
--- NOTE | 2018-04-02 16:10 | NUR ---
5ML AIR REMOVED FROM TR BAND. NO SIGNS OF BLEEDING AT SITE. WILL CONTINUE TO MONITOR.
--- NOTE | 2018-04-02 16:41 | NUR ---
REST OF AIR REMOVED FROM TR BAND. BAND REMOVED FROM PT'S WRIST. BANDAID APPLIED. NO EVIDENCE OF BLEEDING. WILL CONTINUE TO MONITOR.
--- NOTE | 2018-04-02 17:57 | NUR ---
SPOKE WITH DR KWONG REGARDING PT'S DISCHARGE. STATED HE WANTED TO WATCH HIM OVER NIGHT. O2 ON 2L VIA NC. O2 SAT AT 93%. PT COMPLAINS OF HEADACHE. TYLENOL GIVEN. NO OTHER NEEDS AT THIS TIME.
--- NOTE | 2018-04-02 19:41 | NUR ---
REPORT RECEIVED, SHIFT ASSMENT COMPLETED PER FLOW SHEET. AAOX4. PPP. 2 L O2 VIA NC. ORAL TEMP 99.9, FAN TURNED ON, WILL CONTINUE TO MONITOR. DENIES NEEDS. CALL LIGHT WITHIN REACH. SEE FLOW SHEET FOR COMPLETE ASSESSMENT. WILL CONTINUE TO MONITOR.
--- NOTE | 2018-04-02 21:00 | NUR ---
DENIES NEEDS. NO ACUTE DISTRESS NOTED. WILL CONTINUE TO MONITOR.
--- NOTE | 2018-04-02 23:21 | NUR ---
REASSESSMENT COMPLETED PER FLOW SHEET, SEE FOR DETAILS. ORAL TEMPERATURE NOW 98.9. DENIES NEEDS. WILL CONTINUE TO MONITOR. CALL LIGHT WITHIN REACH.
[2018-04-03] VITALS (11 sets, daily range): BP systolic 94–120; BP diastolic 55–76
--- NOTE | 2018-04-03 01:00 | NUR ---
RESTING, NO ACUTE DISTRESS NOTED, DENIES NEEDS. CALL LIGHT WITHIN REACH. WILL CONTINUE TO MONITOR.
--- NOTE | 2018-04-03 03:26 | NUR ---
REASSESSMENT COMPLETED PER FLOW SHEET, SEE FOR DETAILS. DENIES NEEDS. CALL LIGHT WITHIN REACH. WILL CONTINUE TO MONITOR.
--- NOTE | 2018-04-03 05:18 | NUR ---
RESTING, DENIES NEEDS, CALL LIGHT WITHIN REACH. WILL CONTINUE TO MONITOR.
--- NOTE | 2018-04-03 07:28 | NUR ---
REPORT RECEIVED. PT SITTING UP IN BED. ALERT AND ORIENTED. ON ROOM AIR. SATS ARE IN LOW 90S. PT HAS A SALINE LOC IN HIS LEFT HAND AND LEFT AC. DRESSING TO RIGHT GROIN C/D/I. RIGHT WRIST WITH BANDAID C/D/I. LUNGS ARE CLEAR. BOWEL SOUNDS ACTIVE X4. PULSES PALPABLE. PT HAS NO QUESTIONS AT THIS TIME. BED IN LOWEST POSITION. CALL LIGHT IN REACH. WILL CONTINUE TO MONITOR.
--- NOTE | 2018-04-03 09:09 | NUR ---
PT RESTING QUIETLY. O2 SAT FLUCTUATING BETWEEN 88-95 ON ROOM AIR (DOES HAVE JIM). AT BEDSIDE. WILL CONTINUE TO MONITOR.
--- NOTE | 2018-04-03 10:13 | NUR ---
DR KWONG ROUNDED ON PT AND THAT HE WAS DISCHARGING HIM. IV FROM L HAND AND L WRIST REMOVED WITH CATHETER TIP INTACT. PT TO FOLLOW UP WITH DR KWONG IN A MONTH AND IS ABLE TO RETURN TO WORK ON April.
--- NOTE | 2018-04-03 10:40 | NUR ---
DISCHARGE INSTRUCTIONS GIVEN TO PT AND FAMILY MEMBER. PRESCRIPTIONS FOR METOPROLOL, PLAVIX, AND PRAVASTATIN GIVEN. ROLLED PT TO VEHICLE VIA WC. NO OTHER QUESTIONS AT THIS TIME.
--- NOTE | 2018-04-03 11:18 | EC ---
PATIENT:GISELL BAEZA DATE OF SERVICE: 03/31/18 SEX: M MEDICAL RECORD: [id number] DATE OF : [birth year] LOCATION:[place] [address] AGE OF PATIENT: 62 ADMISSION DATE: 03/31/18 REFERRING PHYSICIAN: INTERPRETING PHYSICIAN: ACOSTA LAWTON MD ECHOCARDIOGRAM REPORT ECHO CHARGES 4 ECHO COMPLETE Date: 04/01/18 CLINICAL DIAGNOSIS: AK ECHOCARDIOGRAPHIC MEASUREMENTS (adult normal given) AC root (d.<3.7cm) 3.9 cm LV Septum d (<1.2 cm> 1.8 cm Valve Excursion 1.8 cm LV Septum (systole) 1.9 cm Left Atria (s.<4.0cm> 2.9 cm LVPW d(<1.2cm) 1.4 cm RV (d.<2.3cm) 4.1 cm LVPW (sytole) 1.8 cm LV diastole(<5.6CM) 4.6 cm MV E-F(>70mm/sec) cm LV systole 3.0 cm LVOT Diameter 1.8 cm MV exc.(>10mm) 1.6 cm Est.ejection fraction (50-75%) % DOPPLER: LVIT cm/sec A 98.0 cm/sec E 112 cm/sec LA cm/sec RVSP 24 mmHg LVOT 129 cm/sec AOP1/2T m/s Asc. Ao 167 cm/sec RVOT 91 cm/sec RA cm/sec PA 140 cm/sec AV Gradient Peak 11.18mmHg AV Mean 6.11 mmHg AV Area 2.1 cm MV Gradient Peak 7.17 mmHg MV Mean 2.11 mmHg MV Area cm COMMENTS: Accounting Generalist: Amanda BUTLER Rod Drawer: 1 Dr. Lawton TAPE# PACS Pericardial Effusion N DATE OF SERVICE: PROCEDURE: Echocardiogram. FINDINGS: 1. Left ventricular chamber size is within normal limits. Left ventricular systolic function is normal. Overall ejection fraction estimated at 60%. 2. Left atrium, right atrium, and right ventricular chamber sizes are within normal limits. 3. Valvular structures have normal structure and motion. ECHOCARDIOGRAM REPORT [id number] GISELL BAEZA 4. Doppler interrogation reveals no significant valvular insufficiency or stenosis. No evidence of pericardial effusion or left ventricular thrombus. TRANSINT:[id number] Voice Confirmation ID: [id number] DOCUMENT ID: [id number] ACOSTA LAWTON MD at 1118 CC: [id number] DICTATION DATE: 04/01/18 1315 ICE PLATFORM SUPERVISOR: 04/01/18 1510 DIS IN 04/03/18 [place] [id number] [place] [id number]
--- NOTE | 2018-04-03 11:19 | OP ---
PATIENT NAME: GISELL BAEZA MEDICAL RECORD: [id number] :59 LOCATION:[place] [facility] ADMISSION DATE:03/31/18 SURGEON: ACOSTA KWONG MD DATE OF OPERATION: 04/02/2018 DATE OF SERVICE: 04/02/2018 PROCEDURES: 1. PTCA stent LAD. 2. PTCA stent RCA. 3. Selective coronary angiography. INDICATION: Angina and coronary artery disease. PROCEDURE IN DETAIL: After informed consent was obtained and after a detailed description of risks, benefits as well as alternative therapies, the patient elected to proceed with angiogram and angioplasty. The right radial area was prepped and draped in normal sterile fashion. Right radial artery was cannulated via modified Seldinger technique with placement of 6-Sierra Leonean sheath. All catheters exchanged through this sheath. FINDINGS: The left anterior descending has 80% stenosis in the mid vessel. This was addressed with a 2.5 x 22 mm Integrity stent. Result was 0% residual stenosis. The right coronary has 70% to 80% stenosis in mid vessel. This was addressed with a 3.5 x 26 mm Integrity stent. Result was 0% residual stenosis. OVERALL IMPRESSION: Successful percutaneous transluminal coronary angioplasty stent of the left anterior descending and right coronary artery, both going from 80+ percent initial stenosis to 0% residual. TRANSINT:[id number] Voice Confirmation ID: [id number] DOCUMENT ID: [id number] ACOSTA KWONG MD at 1119 CC: [id number] DICTATION DATE: 04/02/18 1234 KNOTTER HAND: 04/02/18 1245 DIS IN 04/03/18 [place] [address]
--- NOTE | 2018-04-03 17:36 | MORECARE ---
CASE MANAGEMENT DISCHARGE SUMMARY PATIENT: GISELL BAEZA UNIT: [id number] ADM DATE: 03/31/18 AGE: 62 : 59 SEX: M ROOM/BED: [facility] AUTHOR: VIN SILVERIO PHYSICIAN: REFERRING PHYSICIAN: ACOSTA KWONG MD DATE OF SERVICE: 04/03/18 Discharge Plan Patient Name: GISELL BAEZA Facility: [facility]:[place] : 1955 Planned Disposition: Home Anticipated Discharge Date: Discharge Date: 04/03/2018 Expected LOS: Initial Reviewer: [email or web address] Initial Review Date: 04/02/2018 Generated: 04/03/18 6:36 pm Patient Name: GISELL BAEZA Page [id number] at 1732 All edits/amendments must be made on the electronic document DICTATION DATE: 04/03/185 COGENERATION OPERATOR: CAIN 04/03/18 1735 RPT#: [id number] DC DATE:04/03/18 STATUS: DIS IN [facility] [address] [place] [address] END OF REPORT
--- NOTE | 2018-04-03 17:45 | MORECARE ---
CASE MANAGEMENT DISCHARGE SUMMARY PATIENT: GISELL BAEZA UNIT: [id number] ADM DATE: 03/31/18 AGE: 62 : 59 SEX: M ROOM/BED: [facility] AUTHOR: JEAN CLAUDE,DOC PHYSICIAN: REFERRING PHYSICIAN: ACOSTA KWONG MD DATE OF SERVICE: 04/03/18 Discharge Plan Patient Name: GISELL BAEZA Facility: [facility]:[place] : 1955 Planned Disposition: Home Anticipated Discharge Date: Discharge Date: 04/03/2018 Expected LOS: Initial Reviewer: [email or web address] Initial Review Date: 04/02/2018 Generated: 04/03/18 6:45 pm Comments DCP- Discharge Planning Updated by [id number]: Elba Phillips on 04/03/18 4:[address] LATE ENTRY 04/02/18 @ 1515 Patient Name: GISELL BAEZA Admission Status: ER Accout number: [id number] Admission Date: 03-31-2018 : 1955 Admission Diagnosis:STEMI INVOLVING OTH SITES Attending: JAKE KWONG Current LOS: 3 Anticipated DC Date: Planned Disposition: Home Primary Insurance: [employer] [facility] Discharge Planning Comments: CM met with patient and spouse at bedside after obtaining verbal consent. Patient states he plans on returning home after discharge with his . Patient states he will have family transport him home via private vehicle. Patient denies any discharge needs at this time. CM will continue to follow and assist as needed for discharge planning / needs. Turret Lathe Machinist: Elba Phillips DCPIA - Discharge Planning Initial Assessment Updated by [email or web address]: Elba Phillips on 04/03/18 5:36 pm * Is the patient Alert and Oriented? Yes * How many steps to enter\exit or inside your home? * PCP DR Felix FISHER SIDNEY * Pharmacy [address] * Preadmission Environment Home with Family * ADLs Independent * Equipment CPAP * List name and contact numbers for known caregivers / representatives who currently or will assist patient after discharge: LISA SAM - [phone] * Verbal permission to speak to the caregivers and representatives has been obtained from the patient. Yes * Community resources currently utilized None * Additional services required to return to the preadmission environment? No * Can the patient safely return to the preadmission environment? Yes * Has this patient been hospitalized within the prior 30 days at any hospital? No Last DP export: 04/03/18 4:36 p Patient Name: GISELL BAEZA Page [id number] at 1743 All edits/amendments must be made on the electronic document DICTATION DATE: 04/03/181743 PIPELINE INTEGRITY ENGINEER: CAIN 04/03/181743 RPT#: [id number] DC DATE:04/03/18 STATUS: DIS IN [address] [place] [address] END OF REPORT
--- NOTE | 2018-04-04 15:29 | DS ---
PATIENT:GISELL BAEZA :59 MEDICAL RECORD: [id number] DISCHARGE SUMMARY ADMISSION DATE: 03/31/18 DISCHARGE DATE: 04/03/18 DISCHARGE DIAGNOSES: 1. Acute inferior myocardial infarction. 2. Percutaneous transluminal coronary angioplasty stent, left circumflex, left anterior descending and right coronary artery this admission. 3. Hypertension. 4. Hyperlipidemia. HOSPITAL COURSE: Mr. Baeza presents with an acute inferolateral myocardial infarction, had total occlusion of the circumflex. He as well has significant disease of the LAD and RCA, underwent successful PTCA stent of all vessels in a staged fashion, was discharged home with the addition of aspirin, Plavix, metoprolol, Pravachol to his medical regimen. He will follow up with [facility] month. TRANSINT:[id number] Voice Confirmation ID: [id number] DOCUMENT ID: [id number] ACOSTA KWONG MD at 1529 CC: [id number] DICTATION DATE: 04/03/18 1009 PRODUCTION CONTROL ANALYST: 04/04/18 0303 DIS IN 04/03/18 [facility] [address] [place] [address]
== END 2018-04-03 10:51 | disposition home or self-care (01) | DRG 248 ==
LOC: D.ER 13:09 → D.CVICU 14:20 → D.ER 14:21 → D.CVICU 14:22
PROVIDERS: Family Medicine; ADMIT Internal Medicine Interventional Cardiology
PROC: B2111ZZ Fluoroscopy of Multiple Coronary Arteries using Low Osmolar Contrast (ICD-10-PCS; 2018-03-31)
PROC: B2151ZZ Fluoroscopy of Left Heart using Low Osmolar Contrast (ICD-10-PCS; 2018-03-31)
PROC: 4A023N7 Measurement of Cardiac Sampling and Pressure, Left Heart, Percutaneous Approach (ICD-10-PCS; 2018-03-31)
PROC: 02703EZ Dilation of Coronary Artery, One Artery with Two Intraluminal Devices, Percutaneous Approach (ICD-10-PCS; principal; 2018-03-31 13:24)
PROC: 02713EZ Dilation of Coronary Artery, Two Arteries with Two Intraluminal Devices, Percutaneous Approach (ICD-10-PCS; 2018-04-02)
DX: I21.19 ST elevation (STEMI) myocardial infarction involving other coronary artery of inferior wall (principal); I25.119 Atherosclerotic heart disease of native coronary artery with unspecified angina pectoris; I10 Essential (primary) hypertension; E78.5 Hyperlipidemia, unspecified

== ENCOUNTER → 2018-03-31 13:54 | Outpatient (CLI) | payer BC ==
[2018-03-31 13:11] VITALS: BMI 25.8
[2018-04-02 12:40] VITALS: BMI 25.6
--- NOTE | 2018-04-03 11:18 | HP ---
PATIENT: GISELL BAEZA MEDICAL RECORD: [id number] ACCOUNT: [id number] LOCATION:[place] : 59 ADMISSION DATE: 03/31/18 PCP: No PCP HISTORY AND PHYSICAL EXAMINATION DATE OF ADMISSION: 03/31/2018 DIAGNOSES: 1. Acute inferolateral myocardial infarction. 2. Coronary artery disease. HISTORY OF PRESENT ILLNESS: Mr. Baeza has no previous history of ischemic heart disease. No medical history, on no medication. Was canoeing today, began having severe chest pain. He was flown here. He is having an acute inferolateral myocardial infarction. PHYSICAL EXAMINATION: GENERAL APPEARANCE: Well-nourished, well-developed, appears stated age. Level of distress, comfortable. PSYCHIATRIC: Mental status, alert, normal affect. Orientation, oriented to time, place and person. EYES: Lids and conjunctiva, noninjected. No discharge, no pallor. ENT: Lips, teeth, gums, normal dentition. Oropharynx, no cyanosis, no pallor. NECK: Carotid arteries, bilateral normal upstroke, no bruits, no thrills. JUGULAR VEINS: No jugular venous pressure or distention. CERVICAL LYMPH NODES: Nontender, nonenlarged. THYROID: Not enlarged. Nontender. No nodules. LUNGS: Respiratory effort, unlabored. CHEST: Normal curvature. No thoracic deformity. No chest wall tenderness. Percussion, resonant. Auscultation, clear. No wheezes, no rales, no rhonchi. CARDIOVASCULAR: Precordial exam, nondisplaced. No heaves or pericardial thrills. Rate and rhythm, regular. Heart sounds, normal S1, normal S2. No S3, no gallop, no rub. Systolic murmur, not heard. Diastolic murmur, not heard. EXTREMITIES: No cyanosis, no edema. Peripheral pulses, full and equal in all extremities, except as noted. No bruits appreciated. ABDOMEN: Soft, nondistended. Normal aorta. No bruit. Nontender. No masses. Liver, nontender, no hepatomegaly. Spleen, nontender, no splenomegaly. MUSCULOSKELETAL: No joint tenderness. No joint swelling. No erythema. NEUROLOGICAL: Normal gait, normal strength, normal tone. SKIN: Warm and dry. OVERALL IMPRESSION: Acute inferolateral myocardial infarction. We will proceed with emergent coronary angiography. Further care depends upon the findings of the angiography. TRANSINT:[id number] Voice Confirmation ID: [id number] DOCUMENT ID: [id number] HISTORY AND PHYSICAL [id number] GISELL BAEZA JEFFREY MD at 1118 CC: [id number] DICTATION DATE: 03/31/18 1414 BAND SAW OPERATOR CAKE CUTTING: 03/31/18 1422 DEP CLI 03/31/18 [place] [id number] [place] [address]
--- NOTE | 2018-04-03 11:18 | OP ---
PATIENT NAME: GISELL BAEZA MEDICAL RECORD: [id number] :59 LOCATION:[facility] ADMISSION DATE: SURGEON: ACOSTA KWONG MD DATE OF OPERATION: 03/31/2018 PROCEDURES: 1. PTCA stent of left circumflex. 2. Left heart catheterization. 3. Selective coronary angiography. 4. Left ventriculogram. INDICATION: Acute inferolateral myocardial infarction. PROCEDURE IN DETAIL: After informed consent was obtained and after a detailed description of the risks, benefits as well as alternative therapies, the patient elected to proceed with angiogram and angioplasty. The right femoral area was prepped and draped in normal sterile fashion. Right femoral artery was cannulated via modified Seldinger technique with placement of 6-Indonesian sheath. All catheters exchanged through this sheath. FINDINGS: Left ventriculogram was performed in standard 30-degree JENNINGS view, reveals preserved cardiac ejection fraction at 50%. SELECTIVE CORONARY ANGIOGRAPHY: 1. Left main showed no significant angiographic disease. 2. Left anterior descending has 80% to 90% stenosis in the mid vessel, there is a large diagonal system with 80% stenosis. 3. Right coronary has 70% stenosis in the proximal vessel. 4. The circumflex as acute 100% stenosis proximally. PTCA STENT OF THE CIRCUMFLEX: The stent used was 3.5 x 22 mm Integrity and a 2.25 x 18 mm Integrity. Result was 0% residual stenosis. OVERALL IMPRESSION: Successful percutaneous transluminal coronary angioplasty stent of the left circumflex for an acute inferior myocardial infarction going from 100% initial stenosis flow to 0% residual stenosis with MUNIRA-3 flow. TRANSINT:[id number] Voice Confirmation ID: [id number] DOCUMENT ID: [id number] ACOSTA KWONG MD at 1118 CC: [id number] DICTATION DATE: 03/31/18 1416 AUTOMOTIVE HEAVY MECHANIC: 03/31/18 1446 DEP CLI 03/31/18 [place] [id number] [place] [id number]
== END | disposition home or self-care (01) ==
LOC: D.CATH 13:54
DX: I21.19 ST elevation (STEMI) myocardial infarction involving other coronary artery of inferior wall (principal); I25.119 Atherosclerotic heart disease of native coronary artery with unspecified angina pectoris; Z01.812 Encounter for preprocedural laboratory examination

== ENCOUNTER → 2018-10-29 08:07 | Outpatient (CLI) | payer BC ==
[2018-04-02 12:40] VITALS: BMI 25.6
[2018-10-29 17:14] LABS: CHOL - HDL RATIO 5.5 ratio (2.3-4.9); LDL-HDL RATIO 3.6 ratio (1.5-3.5)
--- NOTE | 2018-10-30 13:38 | EC ---
PATIENT:GISELL BAEZA DATE OF SERVICE: 10/29/18 SEX: M MEDICAL RECORD: [id number] DATE OF : 59 LOCATION:[facility] AGE OF PATIENT: 63 ADMISSION DATE: 10/29/18 REFERRING PHYSICIAN: INTERPRETING PHYSICIAN: ACOSTA LAWTON MD ECHOCARDIOGRAM REPORT ECHO CHARGES 4 ECHO COMPLETE Date: 10/29/18 CLINICAL DIAGNOSIS: CAD/LVEF HX HTN ECHOCARDIOGRAPHIC MEASUREMENTS (adult normal given) AC root (d.<3.7cm) 3.5 cm LV Septum d (<1.2 cm> 1.6 cm Valve Excursion 1.8 cm LV Septum (systole) 1.7 cm Left Atria (s.<4.0cm> 4.2 cm LVPW d(<1.2cm) 1.6 cm RV (d.<2.3cm) 4.1 cm LVPW (sytole) 1.7 cm LV diastole(<5.6CM) 5.0 cm MV E-F(>70mm/sec) cm LV systole 3.7 cm LVOT Diameter 1.7 cm MV exc.(>10mm) 1.8 cm Est.ejection fraction (50-75%) % DOPPLER: LVIT cm/sec A 79.0 cm/sec E 95.0 cm/sec LA cm/sec RVSP 32 mmHg LVOT 93 cm/sec AOP1/2T m/s Asc. Ao 118 cm/sec RVOT 68 cm/sec RA cm/sec PA 94 cm/sec AV Gradient Peak 5.56 mmHg AV Mean 2.89 mmHg AV Area 1.8 cm MV Gradient Peak 5.56 mmHg MV Mean 1.34 mmHg MV Area cm COMMENTS: Commercial Glazier: Amanda BUTLER Buzzle Buffer: 1 Dr. Lawton TAPE# PACS Pericardial Effusion Y DATE OF SERVICE: 10/29/2018 PROCEDURE: Echocardiogram. FINDINGS: 1. Left ventricular chamber size is within normal limits. Left ventricular systolic function is normal at 55%. 2. Left atrium is dilated at 4.2 cm. Right atrium and right ventricular chamber sizes are as well mildly dilated. 3. Valvular structures have normal structure and motion. ECHOCARDIOGRAM REPORT [id number] GISELL BAEZA 4. Doppler interrogation reveals mild mitral regurgitation, mild tricuspid regurgitation, no other valvular insufficiency or stenosis. Pulmonary systolic pressure is estimated at 32 mmHg. 5. No evidence of pericardial effusion or left ventricular thrombus. TRANSINT:[id number] Voice Confirmation ID: [id number] DOCUMENT ID: [id number] ACOSTA LAWTON MD at 1338 CC: [id number] DICTATION DATE: 10/29/18 1658 TELEPHONE STATION INSTALLER: 10/30/18 0136 DEP CLI 10/29/18 [facility] [address] [place] [id number]
== END | disposition home or self-care (01) ==
LOC: D.HCCECHO 08:07
PROVIDERS: ATTEND Internal Medicine Interventional Cardiology
DX: I25.10 Atherosclerotic heart disease of native coronary artery without angina pectoris (principal)

== ENCOUNTER → 2018-10-29 16:57 | Outpatient (CLI) | payer BC ==
[2018-04-02 12:40] VITALS: BMI 25.6
== END | disposition home or self-care (01) ==
LOC: D.LABREF 16:57
PROVIDERS: ATTEND Internal Medicine Interventional Cardiology
DX: I25.10 Atherosclerotic heart disease of native coronary artery without angina pectoris (principal)

== ENCOUNTER 2019-09-26 15:28 | Emergency (ER) | payer BC ==
[~2019-09-26] VITALS: Ht 167.6 cm; Wt 72.8 kg
[2019-09-26 15:33] VITALS: Ht 167.6 cm; Wt 72.8 kg
[2019-09-26] MEDS ORDERED: BAYER CHEWABLE81 MG PO (15:33)
[2019-09-26] MEDS ORDERED: TOPROL XL25 MG PO (15:34)
[2019-09-26] MEDS ORDERED: CRESTOR5 MG PO (15:34)
[2019-09-26 16:25] LABS: BASOPHILS 0.1 % (0-2); EOSINOPHILS 0.1 % (0-7); HEMATOCRIT 44.3 % (42.0-54.0); HEMOGLOBIN 15.1 g/dL (13.5-17.5); IMMATURE GRANULOCYTES 0.1 % (0-5); MCH 30.4 pg (26.0-34.0); MCHC 34.1 g/dL (31.0-37.0); MCV 89.3 fL (80.0-100.0); MEAN PLATELET VOLUME 12.3 fL (7.4-10.4); MONOCYTES 7.5 % (2-11); NEUTROPHILS 87.2 % (40-80); PLATELET COUNT 157 10x3/uL (130-400); RBC 4.96 10x6/uL (4.20-6.10); WBC 14.7 10x3/uL (4.8-10.8)
[2019-09-26 16:37] LABS: APTT 28.9 SECONDS (22.8-39.4); INR 1.28 (0.85-1.17); PROTIME 15.9 SECONDS (11.6-15.0)
[2019-09-26 16:38] LABS: CALC OSMOLALITY 277 mosm/kg (275-300); CALCIUM 9.1 mg/dL (8.5-10.1); CARBON DIOXIDE 30.5 mmol/L (21.0-32.0); CHLORIDE - SERUM 103 mmol/L (98-107); GLUCOSE 109 mg/dL (74-106); SODIUM 138 mmol/L (136-145); UREA NITROGEN 14 mg/dL (7-18); eGFR NON AFRICAN AMERICAN 80 mL/min (90-120)
[2019-09-26 16:55] LABS: ALBUMIN 4.3 g/dL (3.4-5.0); ALKALINE PHOSPHATASE 72 U/L (30-120); ALT (SGPT) 42 U/L (10-68); BILIRUBIN - TOTAL 0.91 mg/dL (0.2-1.3); CKMB 0.8 U/L (0.0-3.6); CREATINE KINASE 120 UL (21-232); MAGNESIUM - SERUM 2.1 mg/dL (1.8-2.4)
[2019-09-26 17:17] LABS: TROPONIN-I < 0.017 ng/mL (0.000-0.060)
[2019-09-26 20:30] VITALS: BP 130/72
== END 2019-09-26 20:31 | disposition home or self-care (01) ==
LOC: D.ER 15:28
PROVIDERS: Family Medicine
DX: R07.9 Chest pain, unspecified (principal); D72.829 Elevated white blood cell count, unspecified; I10 Essential (primary) hypertension; I25.2 Old myocardial infarction

== ENCOUNTER → 2019-10-08 08:51 | Outpatient (CLI) | payer BC ==
[2019-09-26 15:33] VITALS: BMI 25.9
[~2019-10-08 08:51] MED LIST: BAYER CHEWABLE81 MG PO; CRESTOR5 MG PO; TOPROL XL25 MG PO
== END | disposition home or self-care (01) ==
LOC: D.HCCARDIO 08:51
PROVIDERS: ATTEND Internal Medicine Cardiovascular Disease
DX: I25.10 Atherosclerotic heart disease of native coronary artery without angina pectoris (principal)

== ENCOUNTER 2019-10-24 06:45 | Day surgery (SDC) | payer BC ==
[~2019-10-24] VITALS: Ht 167.6 cm; Wt 72.3 kg
--- NOTE | ~2019-10-24 | HEMODYNAMI ---
PATIENT:LUCIE BAEZA MEDICAL RECORD: [id number] : 59 LOCATION:D.CAT ADMISSION DATE: 10/24/19 Generatedon:10/24/20199:14 Patient name: LUCIE BAEZA Patient #: [id number] SSN: [id number] : 1955 Date of study: 10/24/2019 Page: Of Hemodynamic Procedure Report Patient Data Patient Demographics Procedure consent was obtained First Name: LUCIE Gender: Male Last Name: FELISHA : 1955 Patient #: [id number] Age: 64 year(s) Race: SSN: [id number] Additional ID: [id number] Contact details Address: [address] [place] [address] State: [place] City: [facility] Zip code: [address] Past Medical History Allergies: No known allergies Admission Admission Data Admission Date: 10/24/2019 Admission Time: 6:45 Arrival Date: 10/24/2019 Arrival Time: 0:00 Height (in.): 66 BSA: 1.82 (m2) Height (cm.): 167.64 BMI: 25.82 (kg/m2) Weight (lbs.): 160 Weight (kg.): 72.57 Lab Results Lab Result Date: 10/24/2019 Lab Result Time: 0:00 Biochemistry Name Units Result Min Max BUN mg/dl 12 --(-*--)-- 7 18 Creatinine mg/dl 1 --(--*-)-- 0.6 1.3 eGFR ml/min 79.56936 *-(----)-- 90 120 NONAFRICAN CBC Name Units Result Min Max Hematocrit % 47.9 --(-*--)-- 42 54 Hemoglobin g/dl 16.2 --(--*-)-- 13.5 17.5 Procedure Procedure Types Cath Procedure Diagnostic Procedure [facility] w/Coronaries Sedation Charges Moderate Sedation up to 30 minutes PCI Procedure Coronary Stent Coronary Stent Initial Hemochron ACT Test Procedure Description Procedure Date Procedure Date: 10/24/2019 Procedure Start Time: 8:35 Procedure End Time: 9:12 Procedure Staff Name Function John Jennings MD Performing Physician Ortega Boogie RN Nurse Cee Jin RT Monitor Macy Caldwell RT Scrub Procedure Data Cath Procedure Fluoroscopy Diagnostic fluoroscopy Total fluoroscopy Time: 4.4 time: 4.4 min min Diagnostic fluoroscopy Total fluoroscopy dose: dose: 408.4 mGy 408.4 mGy Contrast Material Contrast Material Type Amount (ml) Isovue 300 121 Entry Location Entry Primary Successful Side Size Upsize Upsize Entry Closure Succes sful Closure Location (Fr) 1 (Fr) 2 (Fr) Remarks Device Remarks Femoral Right 5 Fr 6 Fr Exoseal artery Short Estimated blood loss: 10 ml Diagnostic catheters Device Type Used For End Catheter Placement MULTIPACK JL 4.0 5Fr Left Coronary catheter Angiography MULTIPACK 3DRC 5Fr Right Coronary catheter Angiography MULTIPACK Pigtail 5 Fr LV Angiography catheter Procedure Complications No complications Procedure Medications Medication Administration Route Dosage 0.9% NaCl I.V. 100 ml/hr Oxygen etCO2 Nasal cannula 2 l/min Heparin Flush Bag added to field 2 bags (1000units/500ml NS) Lidocaine 2% added to field 20 Versed I.V. 2 mg Fentanyl I.V. 100 mcg Heparin Bolus I.V. 7000 units Nitroglycerin IC/IA I.C. 100 mcg Plavix P.O. 600 mg Hemodynamics Rest BSA: 1.82 (m2) HGB: 16.2 (g/dl) O2 Consumption: Estimated: 204.04 (ml/min) O2 Co nsumption indexed: Estimated:112.11 (ml/min/m) Heart Rate: 57 (bpm) Pressure Samples Time Site Value (mmHg) Purpose Heart Use Rate(bpm) 8:43 LV 102/-11,-2 Snapshot 62 Gradients Valve Time Site Site Mean SEP/DFP Peak To Heart Use 1 2 (mmHg) (sec/min) Peak Rate (mmHg) (bpm) Aortic 8:44 LV AO 61 Snapshots Pre Cath Intra NCS Post Cath Vital Signs Time Heart Resp SPO2 etCO2 NIBP (mmHg) Rhythm Pain Sedation Rate (ipm) (%) (mmHg) Status Level (bpm) 8:17:04 58 18 100 29.9 129/74(107) NSR 0 (11) 10(A) , No pain 8:21:12 59 15 96 33.7 124/73(81) NSR 0 (11) 10(A) , No pain 8:25:22 59 17 97 32.2 115/70(80) NSR 0 (11) 10(A) , No pain 8:29:27 60 19 96 36 116/71(78) NSR 0 (11) 10(A) , No pain 8:33:33 58 27 95 37.4 114/70(83) NSR 0 (11) 10(A) , No pain 8:37:41 59 22 95 30.7 111/63(81) NSR 0 (11) 9(A) , No pain 8:41:46 63 24 95 40.4 119/68(88) NSR 0 (11) 9(A) , No pain 8:45:54 65 24 96 40.4 114/68(89) NSR 0 (11) 9(A) , No pain 8:50:00 61 25 97 32.9 116/68(91) NSR 0 (11) 9(A) , No pain 8:54:10 63 28 98 36.7 110/62(74) NSR 0 (11) 9(A) , No pain 8:58:18 64 27 98 29.2 107/62(80) NSR 0 (11) 10(A) , No pain 9:02:24 68 16 99 33.7 104/67(80) NSR 0 (11) 10(A) , No pain 9:06:27 67 18 98 33 114/70(81) NSR 0 (11) 10(A) , No pain Medications Time Medication Route Dose Verified Delivered Reason Notes Effectiveness by by 8:16:44 0.9% NaCl I.V. 100 Ortega Ortega Per physician ml/hr Keagan Boogie RN RN 8:17:01 Oxygen etCO2 2 Ortega Ortega for low 02 sats Nasal l/min Keagan Boogie cannula RN RN 8:17:12 Heparin Flush added 2 Ortega Ortega used for Bag to bags Keagan Boogie procedure (1000units/500ml field ONEIL RN NS) 8:17:30 Lidocaine 2% added 20ml Ortega Ortega for local to vial Keagan Boogie anesthetic field ONEIL RN 8:31:30 Versed I.V. 2 mg Ortega Ortega for sedation Keagan Boogie RN RN 8:31:41 Fentanyl I.V. 100 Ortega Ortega for sedation mcg Keagan Boogie RN RN 8:50:02 Heparin Bolus I.V. 7,000 Ortega Ortega for units Keagan Boogie anticoagulation RN RN 9:00:22 Nitroglycerin I.C. 100 Ortega John for IC/IA mcg Keagan Jennings MD vasodilation RN 9:08:30 Plavix P.O. 600 Ortega John for mg Keagan Jennings MD antiplatelet RN therapy Procedure Log Time Note 7:51:46 Informed consent obtained and on chart 7:55:16 Arrival Date: 10/24/2019 12:00:00 AM 7:55:25 Patient Height : 66 inches 7:55:36 Patient Weight : 160 lbs 7:57:06 Procedure Status Elective Heart Cath (OP). 7:57:11 Time tracking: Regular hours (M-F 7:00 - 5:00) 7:57:26 Patient allergic to No known allergies 7:57:36 H&P Date Dictated: 10/24/2019 H&P Addendum completed by physician on day of procedure. (MUST COMPLETE FOR ALL OUTPATIENTS), New H&P dictated by physician.. 7:59:28 Stress Test: yes; abnormal inferior and lateral 8:03:49 Ortega Boogie RN sent for patient. Start room use. 8:03:57 Plan of Care:Hemodynamics will remain stable., Cardiac rhythm will remain stable., Comfort level will be maintained., Respiratory function will remain adequate., Patient/ family verbilizes understanding of procedure., Procedure tolerated without complication., Recovers from procedure without complications.. 8:07:38 Patient received from Pre/Post Procedure Room to CCL 3 Alert and oriented. Tansferred to table in Supine position. 8:07:40 Warm blankets applied, and derrick hugger turned on for patient comfort. 8:07:41 Correct patient and procedure confirmed by team. 8:07:42 ECG and BP/O2 sat monitors applied to patient. 8:15:59 Vital chart was started 8:16:44 0.9% NaCl 100 ml/hr I.V. was administered by Ortega Boogie RN; Per physician; Verbal order read back and verified. 8:17:01 Oxygen 2 l/min etCO2 Nasal cannula was administered by Ortega Boogie RN; for low 02 sats; Verbal order read back and verified. 8:17:12 Heparin Flush Bag (1000units/500ml NS) 2 bags added to field was administered by Ortega Boogie RN; used for procedure; Verbal order read back and verified. 8:17:30 Lidocaine 2% 20ml vial added to field was administered by Ortega Boogie RN; for local anesthetic; Verbal order read back and verified. 8:19:07 Baseline sample Acquired. 8:19:12 Rhythm: sinus rhythm 8:19:14 Full Disclosure recording started 8:19:16 8:19:17 Pre-procedure instructions explained to patient. 8:19:18 Pre-op teaching completed and patient verbalized understanding. 8:19:22 Family in patients room. 8:19:25 Patient NPO since Midnight. 8:19:28 Is the patient allergic to Iodine/contrast media? No. 8:19:41 Was the patient premedicated? Yes 8:19:44 Is patient on blood thinner?No 8:19:49 Patient diabetic? No. 8:19:52 ----Pre-sedation anethsthesia assessment.---- 8:19:56 Previous problem with sedation/anesthesia? No ? 8:20:03 Snore? Yes 8:20:06 Sleep apnea? Yes 8:20:08 Deviated septum? No 8:20:11 Opens mouth fully? Yes 8:20:14 Sticks out tongue? Yes 8:20:31 Airway obstruction? Yes SLEEP APNEA/SLEEPS WITH CPAP 8:20:37 Dentures? No ? 8:20:41 Pre procedure: right dorsailis pedis pulse 1+ Palpable, but thready & weak; easily obliterated 8:22:22 IV patent on arrival in left hand with 0.9% NaCl at [facility]. 8:22:33 Right groin area was prepped with chlora-prep and draped in sterile fashion 8:22:35 Alarms reviewed by R. N. 8:22:36 Sharps counted by scrub and verified by R.N. 8:22:41 Use device set Femoral Dx 8:22:43 ACIST Syringe (96585) opened to sterile field. 8:22:44 Bag Decanter (2002S) opened to sterile field. 8:22:45 Medline Cath Pack ([id number]) opened to sterile field. 8:22:46 ACIST Hand Control (73852) opened to sterile field. 8:22:47 ACIST Manifold (45748) opened to sterile field. 8:22:48 DIAGNOSTIC Multipack 5Fr catheter set (OM9915) opened to sterile field. 8:22:49 Tegaderm 4 x 4 (1626W) opened to sterile field. 8:22:51 SHEATH 5FR Stafford (SKL523) opened to sterile field. 8:22:51 EMERALD Guide Wire (150-171) opened to sterile field. 8:24:41 Lab Result : Hematocrit 47.9 % 8:24:41 Lab Result : eGFR NONAFRICAN 79.03143 ml/min 8:24:41 Lab Result : Hemoglobin 16.2 g/dl 8:24:41 Lab Result : BUN 12 mg/dl 8:24:41 Lab Result : Creatinine 1 mg/dl 8:24:49 Lab results completed and on chart. 8:26:47 Physician arrived 8:26:47 --------ALL STOP TIME OUT------ 8:26:48 Final Timeout: patient, procedure, and site verified with staff and physician. All members of the team are in agreement. 8:26:52 Right groin site verified by team. 8:27:00 Fire Safety Assessment: A--An alcohol-based skin anteseptic being used preoperatively., C--Open oxygen or nitrous oxide is being used., D--An ESU, laser, or fiber-optic light is being used. 8:27:05 Physical assessment completed. ASA score P 2 - A patient with mild systemic disease as per John Jennings MD. 8:27:11 2) 60-89 Mildly reduced kidney function, and other findings (as for stage 1) point to kidney disease. 8:27:20 Maximum allowable contrast dose (3.7 X eGFR X 0.75)221 ml. 8:27:27 Sedation plan: IV Moderate Sedation Medication:Versed, Fentanyl 8:28:33 Zero performed for pressure channel P1 8:31:30 Versed 2 mg I.V. was administered by Ortega Boogie RN; for sedation; Verbal order read back and verified. 8:31:41 Fentanyl 100 mcg I.V. was administered by Ortega Boogie RN; for sedation; Verbal order read back and verified. 8:31:51 Risk of Mortality: 0.1 8:31:55 Risk of blood transfusion: 2.5 8:32:01 Risk of FARRAH: 0.4 8:33:44 Zero performed for pressure channel P1 8:35:09 Procedure started. 8:35:42 Local anesthetic to right femoral artery with Lidocaine 2% by John Jennings MD.INITIAL ACCESS ONLY 8:37:12 A 5 Fr sheath was inserted into the Right Femoral artery 8:37:46 A MULTIPACK JL 4.0 5Fr catheter was advanced over the wire and used for Left Coronary Angiography. 8:38:12 LCA angiography performed. 8:38:24 Injector settings: Ml/sec: 3, Volume: 6, 8:39:52 Catheter removed. 8:40:03 A MULTIPACK 3DRC 5Fr catheter was advanced over the wire and used for Right Coronary Angiography. 8:40:51 Injector settings: Ml/sec: 3, Volume: 6, 8:41:03 RCA angiography performed. 8:41:34 Catheter removed. 8:41:52 A MULTIPACK Pigtail 5 Fr catheter was advanced over the wire and used for LV Angiography. 8:43:19 LV gram done using JENNINGS 8:43:25 Injector settings: Ml/sec: 5, Volume: 15, 8:44:32 EF : 40 % 8:44:58 LV hemodynamics recorded. 8:45:07 Catheter removed. 8:47:05 Proceeding to intervention. 8:47:24 TUBING High Pressure Extension Tubing (Dick) ([id number]) opened to sterile field. 8:47:25 SHEATH 6FR Stafford (NNF610) opened to sterile field. 8:47:26 INFLATOR Merit BasixCompak (WS4904) opened to sterile field. 8:47:28 GUIDE 6FR XBLAD 3.5 catheter ([id number]) opened to sterile field. 8:48:07 Sheath upsized to a 6 Fr Short. 8:48:23 6 Fr XBLAD3.5 guide catheter was inserted over the wire 8:49:44 BMW 300cm [place]entywood 2 J wire ([id number]) opened to sterile field. 8:49:55 ACC Pre-intervention MUNIRA Flow is 3. 8:50:02 Heparin Bolus 7,000 units I.V. was administered by Ortega Boogie RN; for anticoagulation; Verbal order read back and verified. 8:50:51 Pre PCI Site: [place] pLAD has 80% stenosis. 8:51:50 TPF499 wire advanced. 8:51:53 Wire advanced across lesion. 8:54:12 Place stent Inflation Number: 1 A OZZY RX 3.0 x 12 stent ([id number]) was prepped and advanced across the Prox LAD . The stent was deployed at 13 ANNALEE for 0:00 (min:sec) . 8:59:34 Stent catheter was removed intact over wire. 8:59:45 Wire redirected INTO THE LAD DISTALLY. 9:00:22 Nitroglycerin IC/IA 100 mcg I.C. was administered by John Jennings MD; for vasodilation; Verbal order read back and verified. 9:02:54 Wire removed. 9:02:55 Guide catheter removed. 9:03:20 EXOSEAL 6Fr (EX600) opened to sterile field. 9:03:30 Post PCI Site: [place] pLAD has 0% stenosis. 9:03:36 ACC Post-intervention MUNIRA Flow is 3. 9:03:52 Sheath removed intact; hemostasis achieved with Exoseal to the Right Femoral artery. 9:04:00 Procedure ended.(Physican Out) 9:04:12 Fluoroscopy time 04.40 minutes. 9:04:20 Flurop Dose total: 408.4 9:04:20 Fluoroscopy dose: 408.4 mGy 9:04:29 Dose Area Product 2204.40 mGy/cm. 9:04:35 Contrast amount:Isovue 300 121ml. 9:04:39 Maximum allowable dose exceeded? No. 9:04:40 Sharps counted by scrub and verified by R.N. 9:04:46 Post-op/insertion site Right Femoral artery dressed using a 4 x 4 and Tegaderm. 9:04:51 Post-procedure physical assessment completed. ASA score P 2 - A patient with mild systemic disease as per John Jennings MD. 9:04:55 Post procedure rhythm: unchanged. 9:05:00 Estimated blood loss: 10 ml 9:05:02 Post procedure instruction explained to patient.Patient verbalizes understanding. 9:05:03 Patient needs reinforcement of post procedure teaching. 9:06:55 Procedure type changed to Cath procedure, Diagnostic procedure, LHC, [facility] w/Coronaries, Sedation Charges, Moderate Sedation up to 30 minutes, PCI procedure, Coronary Stent, Coronary Stent Initial, Hemochron ACT Test 9:06:57 Procedure and supply charges have been captured, reviewed, submitted and are correct. 9:08:11 Procedure Complication : No complications 9:08:15 Vital chart was stopped 9:08:18 [facility] Findings: MVD- PCI performed (see procedure note) 9:08:22 Operative report dictated upon procedure completion. 9:08:24 See physician's report for complete and final results. 9:08:27 Report given to Pre/Post Procedure Room. 9:08:30 Plavix 600 mg P.O. was administered by John Jennings MD; for antiplatelet therapy; Verbal order read back and verified. 9:08:32 Patient transfered to Pre/Post Procedure Room with Stretcher. 9:11:40 ACT drawn and resulted at >400 high out of range seconds. (normal therapeutic range 180-240 seconds). 9:12:31 Procedure ended. 9:12:31 Full Disclosure recording stopped 9:12:42 ACC-PCI Only Patient was given prescriptions, or instructed by John Jennings MD to start/continue the following medications upon discharge: Plavix 9:12:44 End room use (Document Last) Intervention Summary Intervention Notes Time ActionType Lesion and Equipment Used Action# Pressure Duration Attributes 8:54:[address] stent Prox LAD OZZY RX 3.0 x 1 13 00:00 12 stent ([id number]) Device Usage Item Name Manufacture Quantity Catalog [facility] Lot# / Number Charge Number Stock Stock Serial# Code ACIST Syringe Acist 1 08956 358519 830649 [id number] 20 (22844) [employer] Bag Decanter Microtek 1 317634 27814 507477 5 () Medical Inc. Medline Cath Medline 1 [id number] 818332 61369 266713 5 Pack ([id number]) ACIST Hand Acist 1 21236 983907 032292 263632 5 Control Medical (25651) Systems Inc ACIST Manifold Acist 1 52310 168321 699755 268351 5 (76977) Medical Systems Inc DIAGNOSTIC Cardinal 1 [id number] 556349 55045 237335 30 Multipack 5Fr Health catheter set (XM1431) Tegaderm 4 x 4 3M 1 1626W 277944 746018 807339 5 (1626W) SHEATH 5FR Terumo 1 MUT072 243561 533743 868089 5 Stafford (VQV970) EMERALD Guide Cardinal 1 502-455 238141 213003 944350 5 Wire (502-455) [facility] MULTIPACK JL Cardinal 1 347960 5 4.0 5Fr Health catheter MULTIPACK 3DRC Cardinal 1 241507 5 5Fr catheter Health MULTIPACK Cardinal 1 580610 5 Pigtail 5 Fr Health catheter TUBING High Merit 1 [id number] 175745 35865 178064 10 Pressure Medical Extension Tubing (Jennings) (XS4511P) SHEATH 6FR Terumo 1 DAU500 687350 393563 001160 40 Stafford (XNB187) INFLATOR Merit Merit 1 RY4793 910967 897530 710732 15 BasixCompak Medical (VW9119) GUIDE 6FR Cardinal 1 [id number] 743317 474946 884570 10 XBLAD 3.5 Health catheter (98831367) BMW 300cm Landeros 1 [id number] 020560 469257 220961 5 [place] 2 J Vascular wire (9969996T) OZZY RX 3.0 x Medtronic 1 [id number] 762243 8905770 054801 5 12 stent ([id number]) EXOSEAL 6Fr Cardinal 1 EX600 025049 481183 855680 10 (EX600) Health Signature Audit [place] Stage Time Signature Unsigned Intra-Procedure 10/24/2019 Cee 9:13:13 AM Annabel RT(R) (CV) Intra-Procedure 10/24/2019 Ortega 9:13:44 AM Keagan ONEIL Intra-Procedure 10/24/2019 John Jennings MD 9:14:16 AM [facility] [address] [place] [address]
[2019-10-24] MEDS ORDERED: CRESTOR20 MG PO (07:25)
[2019-10-24 07:39] VITALS: BP 138/62; Ht 167.6 cm; Wt 72.3 kg
[2019-10-24 08:05] LABS: ALT (SGPT) 45 U/L (10-68); CALC OSMOLALITY 277 mosm/kg (275-300); CARBON DIOXIDE 29.8 mmol/L (21.0-32.0); CHLORIDE - SERUM 101 mmol/L (98-107); CHOL - HDL RATIO 3.1 ratio (2.3-4.9); CHOLESTEROL, TOTAL 140 mg/dL (0-200); GLUCOSE 104 mg/dL (74-106); HDL CHOLESTEROL 45 mg/dL (32-96); LDL CHOLESTEROL 70 mg/dL (0-100); LDL-HDL RATIO 1.6 ratio (1.5-3.5); POTASSIUM - SERUM 3.8 mmol/L (3.5-5.1); SODIUM 139 mmol/L (136-145); TRIGLYCERIDE 125 mg/dL (30-200); UREA NITROGEN 12 mg/dL (7-18); eGFR NON AFRICAN AMERICAN 80 mL/min (90-120)
[2019-10-24 08:18] LABS: BASOPHILS 0.3 % (0-2); EOSINOPHILS 2.1 % (0-7); HEMATOCRIT 47.9 % (42.0-54.0); HEMOGLOBIN 16.2 g/dL (13.5-17.5); IMMATURE GRANULOCYTES 0.5 % (0-5); LYMPHOCYTES 15.6 % (15-50); MCH 30.3 pg (26.0-34.0); MCHC 33.8 g/dL (31.0-37.0); MCV 89.5 fL (80.0-100.0); MEAN PLATELET VOLUME 12.7 fL (7.4-10.4); MONOCYTES 11.8 % (2-11); NEUTROPHILS 69.7 % (40-80); PLATELET COUNT 151 10x3/uL (130-400); RBC 5.35 10x6/uL (4.20-6.10); RDW 13.3 % (11.5-14.5); WBC 6.2 10x3/uL (4.8-10.8)
--- NOTE | 2019-10-24 09:25 | NUR ---
PT ARRIVED BY STRETCHER. PLACED ON MONITORS. ASSESSMENT COMPLETED. VSS AT THIS TIME. CALL LIGHT WITHIN REACH. FAMILY AT BEDSIDE.
[2019-10-24] MEDS ORDERED: PLAVIX75 MG PO (09:37)
--- NOTE | 2019-10-24 09:40 | NUR ---
RIGHT GROIN DRESSING C/D/I. NO S/S OF HEMATOMA NOTED. CALL LIGHT WITHIN REACH. VSS AT THIS TIME. FAMILY AT BEDSIDE. PT TOLERATING SIPS OF SODA. DENIES NAUSEA.
--- NOTE | 2019-10-24 10:10 | NUR ---
RIGHT GROIN DRESSING C/D/I. NO S/S OF HEMATOMA NOTED. VSS AT THIS TIME. RIGHT PEDAL PULSE PALPABLE. CALL LIGHT WITHIN REACH.
--- NOTE | 2019-10-24 10:42 | NUR ---
RIGHT GROIN DRESSING C/D/I. NO S/S OF HEMATOMA NOTED. CALL LIGHT WITHIN REACH. VSS AT THIS TIME. PT RESTING COMFORTABLY. RIGHT PEDAL PULSE PALPABLE.
--- NOTE | 2019-10-24 11:15 | NUR ---
RIGHT GROIN DRESSING C/D/I. NO S/S OF HEMATOMA NOTED. CALL LIGHT WITHIN REACH. VSS AT THIS TIME. RESTING COMFORTABLY. DENIES NAUSEA/PAIN. FAMILY AT BEDSIDE.
--- NOTE | 2019-10-24 12:00 | NUR ---
RIGHT GROIN DRESSING C/D/I. NO S/S OF HEMATOMA NOTED. HEAD OF BED INC TO 30 DEGREES. TOLERATED WELL. SET UP WITH DRINK AND SANDWICH TRAY. DENIES NAUSEA/PAIN. VSS.
--- NOTE | 2019-10-24 12:45 | NUR ---
RIGHT GROIN DRESSING C/D/I. NO S/S OF HEMATOMA NOTED. PIV D/C'D WITH CATH TIP INTACT. TOLERATED WELL. PT INSTRUCTED TO GET UP AND DRESSED AT THIS TIME. FAMILY AT BEDSIDE TO ASSIST.
--- NOTE | 2019-10-24 13:00 | NUR ---
PT AMBULATED TO RESTROOM. VOIDED WITHOUT DIFFICULTY. STEADY GAIT NOTED. RIGHT GROIN DRESSING C/D/I. NO S/S OF HEMATOMA NOTED. PT TAKEN OUT TO VEHICLE BY WHEELCHAIR. NO S/S OF DISTRESS NOTED. ALL BELONGINGS AND PAPERWORK IN HAND.
== END 2019-10-24 13:00 | disposition home or self-care (01) ==
LOC: D.CATH 06:45
PROVIDERS: ATTEND Internal Medicine Cardiovascular Disease
DX: I25.119 Atherosclerotic heart disease of native coronary artery with unspecified angina pectoris (principal); R94.39 Abnormal result of other cardiovascular function study; I10 Essential (primary) hypertension; R07.9 Chest pain, unspecified; E78.5 Hyperlipidemia, unspecified

== ENCOUNTER → 2020-06-10 18:11 | Outpatient (CLI) | payer BC ==
[2019-10-24 07:39] VITALS: BMI 25.7
[~2020-06-10 18:11] MED LIST changes: +CRESTOR20 MG PO; +PLAVIX75 MG PO
[2020-06-10 18:55] LABS: CHOL - HDL RATIO 2.6 ratio (2.3-4.9); LDL-HDL RATIO 1.1 ratio (1.5-3.5)
== END | disposition home or self-care (01) ==
LOC: D.LABREF 18:11
PROVIDERS: ATTEND Internal Medicine Cardiovascular Disease
DX: I25.10 Atherosclerotic heart disease of native coronary artery without angina pectoris (principal)